=== PATIENT | female | born 1940 | race Caucasian/White ===

== ENCOUNTER 2021-10-26 07:03 | Inpatient (IN) ==
--- NOTE | 2021-10-20 11:39 | XRay Report ---
INDICATION: pre-op TECHNIQUE: PA and lateral upright chest x-ray COMPARISON: Previous chest x-rays dated 01/21/2021, 05/16/2016. Previous chest CT scan dated 04/07/2021 FINDINGS: Lungs: No focal pulmonary parenchymal infiltrate or mass. Lungs are negative. CT scan demonstrated changes of pulmonary fibrosis and bronchiectasis. These findings are not well-visualized on plain film examination. Heart, vascular: No significant cardiomegaly. Pulmonary vascularity is normal. No pulmonary edema or pulmonary congestion Mediastinum, kadeem: No mediastinal widening. No hilar mass Pleura:No pleural fluid. No pleural-based mass or calcification Thoracic spine, ribs: No thoracic compression fracture. Ribs are negative. No fracture. No lytic lesion. Previous right reverse shoulder arthroplasty IMPRESSION: No acute abnormality Interpreted and Authenticated by: Daniel Key 10/20/21
[2021-10-20 14:42] LABS: Basophils # (Auto) 0.07 K/mcL (0.00-0.30); Basophils % (Auto) 0.8 % (0.0-2.0); Eosinophils % (Auto) 2.2 % (0.0-7.0); Hematocrit 37.2 % (34.1-44.9); Hemoglobin 11.4 g/dL (11.2-15.7); Lymphocytes # (Auto) 0.87 K/mcL (1.50-4.80); Lymphocytes % (Auto) 9.7 % (15.5-49.0); Mean Cell Volume 87.3 fL (80.0-100.0); Mean Corpuscular HGB Conc 30.6 g/dL (31.0-36.0); Mean Platelet Volume 10.6 fL (7.4-10.4); Monocytes # (Auto) 0.54 K/mcL (0.10-0.90); Neutrophils % (Auto) 81.3 % (38.0-78.0); Platelet Count 309 K/mcL (140-440); RBC 4.26 M/mcL (3.59-5.38); Red Cell Distribution Width 16.5 % (11.5-14.5); WBC 8.9 K/mcL (4.5-11.0)
[2021-10-20 14:48] LABS: Partial Thromboplastin Time 28.7 sec (20.0-37.0); Prothrombin Time 13.8 sec (11.9-14.5)
[2021-10-20 16:29] LABS: ALT/SGPT 14 U/L (<40); AST/SGOT 23 U/L (<32); Albumin 3.8 gm/dL (3.2-5.2); Albumin/Globulin Ratio 1.5 (1.0-2.3); Alkaline Phosphatase 103 U/L (39-117); Bilirubin,Total 0.3 mg/dL (0.1-1.0); Blood Urea Nitrogen 16 mg/dL (8-23); Calcium 9.6 mg/dL (8.6-10.4); Carbon Dioxide 29 mmol/L (22-30); Chloride 100 mmol/L (96-108); Globulin 2.6 gm/dL (2.2-3.7); Glomerular Filtration Rate 60; Glucose 90 mg/dL (70-105)
--- NOTE | 2021-10-21 07:05 | EKG ---
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
[~2021-10-26 07:03] MED LIST: CEFEPIME 2 GM VIAL IV SCH; methylPREDNISolone SOD SUCC 125 MG/2 ML VIAL IV SCH
[2021-10-26] MEDS ORDERED: ePHEDrine 50 MG/5 ML SYRINGE (ANEST) IV ONE (09:40)
[2021-10-26] MEDS ORDERED: ONDANSETRON 4 MG/2 ML VIAL ONE (09:40)
[2021-10-26] MEDS ORDERED: ROCURONIUM 10 MG/ML ML IV ONE (09:40)
[2021-10-26] MEDS ORDERED: SUGAMMADEX SODIUM 200 MG/2 ML VIAL IV ONE (09:40)
[2021-10-26] MEDS ORDERED: PROPOFOL 200 MG/20 ML VIAL IV ONE (09:40)
[2021-10-26] MEDS ORDERED: LIDOCAINE HCL/PF 100 MG/5 ML SYRINGE IV ONE (09:40)
[2021-10-26] MEDS ORDERED: HYDROmorphone 1 MG/ML SYRINGE ONE (09:40)
[2021-10-26] MEDS ORDERED: fentaNYL 100 MCG/2 ML VIAL IV ONE (09:40)
[2021-10-26] MEDS ORDERED: DEXAMETHASONE 10 MG/ML VIAL ONE (09:40)
[2021-10-26] MEDS ORDERED: SUCCINYLCHOLINE 20 MG/ML ML IV ONE (09:40)
[2021-10-26] MEDS ORDERED: GENTAMICIN SULFATE 800 MG/20 ML VIAL IR ONE (10:30)
[2021-10-26] MEDS ORDERED: VANCOMYCIN 1 GM VIAL TOPICAL ONE (10:45)
[2021-10-26] MEDS ORDERED: HYDROmorphone 0.5 MG/0.5 ML SYRINGE IV PRN (12:32)
[2021-10-26] MEDS ORDERED: METHOCARBAMOL 1,000 MG/10 ML VIAL IV PRN (12:32)
[2021-10-26] MEDS ORDERED: METOPROLOL TARTRATE 5 MG/5 ML VIAL IV PRN (12:32)
[2021-10-26] MEDS ORDERED: LABETALOL 5 MG/ML ML IV PRN (12:32)
[2021-10-26] MEDS ORDERED: ACETAMINOPHEN 1,000 MG/100 ML BAG IV ONE (12:32)
[2021-10-26] MEDS ORDERED: fentaNYL 100 MCG/2 ML VIAL IV PRN (12:32)
[2021-10-26] MEDS ORDERED: NALOXONE HCL 0.4 MG/ML VIAL IV PRN (12:32)
[2021-10-26] MEDS ORDERED: LACTATED RINGERS 250 ML IV PRN (12:32)
[2021-10-26] MEDS ORDERED: IPRATROPIUM/ALBUTEROL 3 ML AMPUL.NEB NEB PRN (12:32)
[2021-10-26] MEDS ORDERED: ONDANSETRON 4 MG/2 ML VIAL IV PRN (12:32)
--- NOTE | 2021-10-26 12:39 | Brief Operative Note ---
Brief Operative Note Date of procedure: 10/26/21 Pre-op diagnosis: parastomal hernia;rectal prolapse Post-op diagnosis: other (parastomal hernia ;rectal prolapse) Procedure: parastomal hernia repair with mesh;ripstein posterior proctopexy Grafts/Implants: Yes (mesh graft x2) Anesthesia: GETA Findings: modrate sized parastomal hernia; full anorectal prolapse Complications: none Surgeon: Elli Feldman Estimated blood loss (cc): 50 Specimens Removed/Pathology: none sent Condition: stable Disposition: PACU
[2021-10-26] MEDS ORDERED: LACTATED RINGERS 1,000 ML IV SCH (12:45)
[2021-10-26] MEDS: 0.9 % SODIUM CHLORIDE 1,000 ML IV SCH (13:50)
[2021-10-26] MEDS: METHOCARBAMOL 750 MG TABLET PO SCH ×3 (13:56→21:36)
[2021-10-26] MEDS: 0.9 % SODIUM CHLORIDE 10 ML SYRINGE IV SCH ×2 (14:52→21:37)
[2021-10-26] MEDS: SILDENAFIL 20 MG PO SCH ×2 (14:54→21:38)
[2021-10-26] MEDS: Pilocarpine Hcl 5 mg tablet PO SCH ×2 (14:54→21:38)
[2021-10-26] MEDS: CEFEPIME 2 GM VIAL IV SCH ×2 (15:01→21:37)
[2021-10-26] MEDS: HYDROmorphone 1 MG/ML SYRINGE IV PRN (16:04)
[2021-10-26] MEDS: HYDROXYCHLOROQUINE 200 MG TABLET PO SCH (21:37)
[2021-10-26] MEDS: oxyCODONE HCL 5 MG TABLET PO PRN (21:37)
[2021-10-27] MEDS: HYDROmorphone 1 MG/ML SYRINGE IV PRN ×5 (00:39→23:48)
[2021-10-27] MEDS: 0.9 % SODIUM CHLORIDE 1,000 ML IV SCH ×2 (03:17→16:40)
[2021-10-27] MEDS: CEFEPIME 2 GM VIAL IV SCH ×3 (05:17→22:20)
[2021-10-27] MEDS: 0.9 % SODIUM CHLORIDE 10 ML SYRINGE IV SCH ×3 (05:18→20:30)
[2021-10-27] MEDS: oxyCODONE HCL 5 MG TABLET PO PRN (06:03)
[2021-10-27 07:29] LABS: Basophils # (Auto) 0.06 K/mcL (0.00-0.30); Basophils % (Auto) 0.4 % (0.0-2.0); Eosinophils # (Auto) 0.04 K/mcL (0.00-0.70); Eosinophils % (Auto) 0.3 % (0.0-7.0); Hematocrit 32.4 % (34.1-44.9); Lymphocytes # (Auto) 1.11 K/mcL (1.50-4.80); Lymphocytes % (Auto) 8.1 % (15.5-49.0); Mean Cell Volume 88.8 fL (80.0-100.0); Mean Corpuscular HGB Conc 30.9 g/dL (31.0-36.0); Mean Platelet Volume 10.4 fL (7.4-10.4); Monocytes # (Auto) 1.21 K/mcL (0.10-0.90); Monocytes % (Auto) 8.8 % (1.0-12.0); Neutrophils % (Auto) 82.4 % (38.0-78.0); Platelet Count 267 K/mcL (140-440); RBC 3.65 M/mcL (3.59-5.38); Red Cell Distribution Width 16.1 % (11.5-14.5); WBC 13.7 K/mcL (4.5-11.0)
[2021-10-27 08:11] LABS: ALT/SGPT 11 U/L (<40); AST/SGOT 24 U/L (<32); Albumin 3.1 gm/dL (3.2-5.2); Albumin/Globulin Ratio 1.5 (1.0-2.3); Alkaline Phosphatase 61 U/L (39-117); Bilirubin,Direct < 0.2 mg/dL (0-0.3); Bilirubin,Total 0.3 mg/dL (0.1-1.0); Blood Urea Nitrogen 19 mg/dL (8-23); Calcium 8.1 mg/dL (8.6-10.4); Carbon Dioxide 24 mmol/L (22-30); Chloride 104 mmol/L (96-108); Glomerular Filtration Rate 60; Glucose 101 mg/dL (70-105); Lactate Dehydrogenase 232 U/L (135-225); Triglycerides 87 mg/dL (<150); Uric Acid 6.4 mg/dL (2.5-8.0)
[2021-10-27] MEDS: SILDENAFIL 20 MG PO SCH ×3 (08:21→20:31)
[2021-10-27] MEDS: Pilocarpine Hcl 5 mg tablet PO SCH ×3 (08:21→20:31)
[2021-10-27] MEDS: ASPIRIN 81 MG TAB.CHEW PO SCH (08:30)
[2021-10-27] MEDS: FISH OIL 1,000 MG CAPSULE PO SCH (08:30)
[2021-10-27] MEDS: LISINOPRIL 20 MG TABLET PO SCH (08:30)
[2021-10-27] MEDS: HYDROXYCHLOROQUINE 200 MG TABLET PO SCH ×2 (08:32→21:26)
[2021-10-27] MEDS: amLODIPine 10 MG TABLET PO SCH (08:32)
[2021-10-27] MEDS: predniSONE 10 MG TABLET PO SCH (08:33)
[2021-10-27] MEDS: GABAPENTIN 300 MG CAPSULE PO SCH (08:42)
[2021-10-27] MEDS: METHOCARBAMOL 750 MG TABLET PO SCH ×4 (08:42→20:31)
--- NOTE | 2021-10-27 12:49 | General Surgery Progress Note ---
SUBJECTIVE Subjective Patient information: Note initiated : 10/27/21 at 12:43 pm Service Date, if different from initiated Date: [] Patient: Joceline Venegas 81 y/o F admitted on 10/26/21 for Repair of Parastomal Hernia and Proctopexy. Chief Complaint: [] Principal diagnosis: Parastomal hernia; anal rectal prolapse Interval history: Patient is status post repair of a parastomal hernia and a Ripstein posterior proctopexy for high-grade full-thickness anal rectal prolapse. She is doing fine. Her pain is controlled. She denies any chest discomfort or shortness of breath. She is afebrile. White blood count 13.7, hemoglobin 10, hematocrit 32.4, potassium 3.3, BUN 19, creatinine 0.9. Constitutional Vitals: Vital Signs Temp Pulse Resp BP Pulse Ox 99.0 F 87 18 154/75 93 10/27/21 08:00 10/27/21 08:00 10/27/21 08:00 10/27/21 08:00 10/27/21 08:00 Period Temp Pulse Resp BP Sys/Caicedo Pulse Ox Last 24 Hr 96.7 F-99.0 F 66-87 13-20 110-157/51-87 84-100 Intake and Output 10/26/21 10/27/21 10/27/21 21:59 05:59 13:59 Intake Total 200 1540 Output Total 365 435 Balance -165 1105 Weight 143 lb 14.4 oz Intake & Output: Intake & Output 10/26/21 10/27/21 10/27/21 21:59 05:59 13:59 Intake Total 200 1540 Output Total 365 435 Balance -165 1105 Weight 143 lb 14.4 oz Intake: IV 1000 Sodium Chloride 0.9% 1,000 ml @ 1000 75 mls/hr IV .[id number] [facility] Rx#: [id number] Oral 200 540 Output: Drainage 140 60 Abdomen 80 Right Lower Abdomen MAURICIO Drain 60 60 Urine Catheter Amount 225 375 Stool 0 Other: Urine Appearance Clear Uretheral (Jauregui) Clear Clear Urine Color Bright Yellow Bright Yellow Uretheral (Jauregui) Bright Yellow Bright Yellow Urine Odor Normal Uretheral (Jauregui) Normal Head Head exam: Present atraumatic, normal inspection and normocephalic Eye Eye exam: Present EOMI and PERRL ENT ENT exam: Present mucous membranes moist and normal oropharynx Neck Neck exam: Present full ROM and normal inspection; Absent lymphadenopathy Respiratory Respiratory exam: Present normal respiratory exam and CTAB; Absent rhonchi or wheezes Cardiovascular Cardiovascular exam: Present normal rate and rhythm, RRR, +S1 and +S2; Absent JVD GI/Abdominal GI/Abdominal exam: Present normal bowel sounds, soft, distended and tenderness (Moderate midline incisional tenderness and tenderness around parastomal area) Extremities Exam Extremities exam: Present full ROM, normal inspection and neurovascular intact (Fibrotic changes with ulceration and flexion contractures of fingers left hand due to Raynaud's and scleroderma) Psychiatric Psychiatric exam: Present normal affect and normal mood A/P Assessment and plan (1) Parastomal hernia: Status: Acute (2) Complete rectal prolapse with displacement of anal sphincter: Status: Acute (3) Obstructive sleep apnea hypopnea, severe: Status: Acute (4) History of deep venous thrombosis or pulmonary embolus: Status: Acute Plan Increase activity and get out of bed Time Spent With Patient Time: Total time spent is greater than 50% in coordination of care (as documented) at patient's floor/unit and/or counseling patient:
[2021-10-27] MEDS: ONDANSETRON 4 MG/2 ML VIAL IV PRN ×2 (13:45→18:43)
[2021-10-27] MEDS ORDERED: PROMETHAZINE 25 MG/ML VIAL IV PRN (19:38)
[2021-10-27] MEDS ORDERED: METOCLOPRAMIDE 10 MG/2 ML VIAL ONE (20:08)
[2021-10-27] MEDS ORDERED: PROMETHAZINE 25 MG/ML VIAL ONE (20:09)
[2021-10-27] MEDS: METOCLOPRAMIDE 10 MG/2 ML VIAL IV SCH (20:29)
[2021-10-27] MEDS ORDERED: diphenhydrAMINE 50 MG/ML VIAL IV PRN (21:00)
--- NOTE | 2021-10-28 05:25 | XRay Report ---
INDICATION: Post Surgical TECHNIQUE: Supine and upright abdomen. COMPARISON: Previous CT scans dated 04/23/2021, 01/21/2021 FINDINGS:Skin dereje in a vertical lower abdominal and pelvic incision. There is a surgical drain in the pelvis. There is an apparent right lower quadrant pelvic ostomy. Bowel gas pattern is unremarkable and nonspecific. There is no mechanical small bowel obstruction. There is no dilated gas-filled small bowel. There is no biliary or portal venous gas. There is probable pneumatosis with gas under the right hemidiaphragm. This is considered a postsurgical finding. IMPRESSION: 1. Postoperative abdomen 2. No mechanical small bowel obstruction. Nonspecific bowel gas pattern Interpreted and Authenticated by: Daniel Key 10/28/21
[2021-10-28] MEDS: 0.9 % SODIUM CHLORIDE 10 ML SYRINGE IV SCH ×3 (06:22→20:17)
[2021-10-28] MEDS: 0.9 % SODIUM CHLORIDE 1,000 ML IV SCH ×2 (06:22→19:43)
[2021-10-28] MEDS: CEFEPIME 2 GM VIAL IV SCH ×3 (06:22→21:04)
[2021-10-28] MEDS: Pilocarpine Hcl 5 mg tablet PO SCH ×3 (10:34→20:17)
[2021-10-28] MEDS: SILDENAFIL 20 MG PO SCH ×3 (10:34→20:17)
[2021-10-28] MEDS: LISINOPRIL 20 MG TABLET PO SCH (10:50)
[2021-10-28] MEDS: predniSONE 10 MG TABLET PO SCH (10:50)
[2021-10-28] MEDS: HYDROXYCHLOROQUINE 200 MG TABLET PO SCH ×2 (10:50→20:16)
[2021-10-28] MEDS: ASPIRIN 81 MG TAB.CHEW PO SCH (10:50)
[2021-10-28] MEDS: amLODIPine 10 MG TABLET PO SCH (10:51)
[2021-10-28] MEDS: GABAPENTIN 300 MG CAPSULE PO SCH (10:53)
[2021-10-28] MEDS: FISH OIL 1,000 MG CAPSULE PO SCH (10:53)
[2021-10-28] MEDS: METHOCARBAMOL 750 MG TABLET PO SCH ×4 (10:53→20:16)
--- NOTE | 2021-10-28 12:32 | General Surgery Progress Note ---
SUBJECTIVE Subjective Patient information: Note initiated : 10/28/21 at 12:23 pm Service Date, if different from initiated Date: [] Patient: Joceline Venegas 81 y/o F admitted on 10/26/21 for Repair of Parastomal Hernia and Proctopexy. Chief Complaint: [] Principal diagnosis: Parastomal hernia; anal rectal prolapse Interval history: Patient had multiple episodes of nausea and vomiting last evening. She was switched to metoclopramide and promethazine and has not had nausea or vomiting since then. She still has not had any flatus passage. Her stoma looks good and she does not have any distention. Abdominal x-rays from last evening shows a small amount of small bowel gas but no obstructive pattern. MAURICIO drain with small amount of serosanguineous drainage Constitutional Vitals: Vital Signs Temp Pulse Resp BP Pulse Ox 98.4 F 73 20 146/71 90 10/28/21 11:41 10/28/21 03:06 10/28/21 11:41 10/28/21 11:41 10/28/21 11:41 Period Temp Pulse Resp BP Sys/Caicedo Pulse Ox Last 24 Hr 98.0 F-99.3 F 72-82 16-20 129-152/68-76 90-92 Intake and Output 10/27/21 10/28/21 10/28/21 21:59 05:59 13:59 Intake Total 4825 544 7431 Output Total 910 1330 1675 Balance 90 -1090 -675 Weight 145 lb 9 oz Intake & Output: Intake & Output 10/27/21 10/28/21 10/28/21 21:59 05:59 13:59 Intake Total 1961 976 1046 Output Total 910 1330 1675 Balance 90 -1090 -675 Weight 145 lb 9 oz Intake: IV 1000 1000 Sodium Chloride 0.9% 1,000 ml @ 1000 1000 75 mls/hr IV .[id number] [facility] Rx#: [id number] Oral 240 Output: Drainage 85 Right Lower Abdomen MAURICIO Drain 85 Drainage 125 30 Right Lower Abdomen MAURICIO Drain 125 30 Urine Catheter Amount 700 1300 1675 Other: Urine Appearance Clear Clear Clear Uretheral (Jauregui) Clear Clear Urine Color Straw Bright Yellow Bright Yellow Uretheral (Jauregui) Pale Bright Yellow Straw Urine Odor Normal Normal Uretheral (Jauregui) Normal Normal # Unmeasured Emesis 1 # Emeses 2 Eye Eye exam: Present EOMI and PERRL Pupils: Present normal accommodation ENT ENT exam: Present normal exam and normal oropharynx Neck Neck exam: Present full ROM and normal inspection Respiratory Respiratory exam: Present normal respiratory exam and CTAB Cardiovascular Cardiovascular exam: Present normal rate and rhythm, +S1 and +S2 GI/Abdominal GI/Abdominal exam: Present soft, diminished bowel sounds, distended (Mildly distended) and tenderness (Midline tenderness and tenderness in the parastomal area) Extremities Exam Extremities exam: Present full ROM, normal capillary refill and neurovascular intact Neurological Exam Neurological exam: Present alert and reflexes normal; Absent motor sensory deficit Psychiatric Psychiatric exam: Present normal affect and normal mood A/P Assessment and plan (1) Parastomal hernia: Status: Acute Qualifiers: Obstruction and gangrene presence: without obstruction or gangrene Qualified Code(s): K43.5 - Parastomal hernia without obstruction or gangrene (2) Colostomy status: Status: Acute (3) Obstructive sleep apnea hypopnea, severe: Status: Acute (4) Complete rectal prolapse with displacement of anal sphincter: Status: Acute Plan Patient is clinically improved from yesterday. She has mild adynamic ileus present medications are controlling her symptoms of nausea. We will not advance diet at this time Time Spent With Patient Time: Total time spent is greater than 50% in coordination of care (as documented) at patient's floor/unit and/or counseling patient:
[2021-10-28] MEDS: METOCLOPRAMIDE 10 MG/2 ML VIAL IV SCH (19:49)
[2021-10-28] MEDS: diphenhydrAMINE 25 MG CAPSULE PO PRN (21:04)
[2021-10-29] MEDS: METOCLOPRAMIDE 10 MG/2 ML VIAL IV SCH ×5 (00:37→23:53)
[2021-10-29] MEDS: 0.9 % SODIUM CHLORIDE 10 ML SYRINGE IV SCH ×3 (05:19→20:37)
[2021-10-29] MEDS: CEFEPIME 2 GM VIAL IV SCH ×3 (05:19→21:39)
[2021-10-29 06:56] LABS: Basophils # (Auto) 0.05 K/mcL (0.00-0.30); Basophils % (Auto) 0.4 % (0.0-2.0); Eosinophils # (Auto) 0.31 K/mcL (0.00-0.70); Eosinophils % (Auto) 2.5 % (0.0-7.0); Hemoglobin 10.7 g/dL (11.2-15.7); Lymphocytes # (Auto) 0.97 K/mcL (1.50-4.80); Lymphocytes % (Auto) 7.8 % (15.5-49.0); Mean Cell Volume 86.7 fL (80.0-100.0); Mean Corpuscular HGB Conc 31.5 g/dL (31.0-36.0); Mean Platelet Volume 10.6 fL (7.4-10.4); Monocytes # (Auto) 0.99 K/mcL (0.10-0.90); Neutrophils % (Auto) 81.3 % (38.0-78.0); Platelet Count 257 K/mcL (140-440); RBC 3.92 M/mcL (3.59-5.38); Red Cell Distribution Width 16.1 % (11.5-14.5); WBC 12.4 K/mcL (4.5-11.0)
[2021-10-29 07:46] LABS: ALT/SGPT 13 U/L (<40); AST/SGOT 21 U/L (<32); Albumin 2.8 gm/dL (3.2-5.2); Alkaline Phosphatase 66 U/L (39-117); Bilirubin,Direct < 0.2 mg/dL (0-0.3); Bilirubin,Total 0.4 mg/dL (0.1-1.0); Blood Urea Nitrogen 9 mg/dL (8-23); Calcium 8.7 mg/dL (8.6-10.4); Carbon Dioxide 30 mmol/L (22-30); Chloride 101 mmol/L (96-108); Globulin 2.8 gm/dL (2.2-3.7); Glomerular Filtration Rate 82; Glucose 82 mg/dL (70-105); Lactate Dehydrogenase 231 U/L (135-225); Phosphorous 1.8 mg/dL (2.5-4.5); Triglycerides 107 mg/dL (<150); Uric Acid 4.9 mg/dL (2.5-8.0)
--- NOTE | 2021-10-29 08:36 | XRay Report ---
INDICATION: FOR F/U OF ILEUS TECHNIQUE: Supine and upright abdomen. COMPARISON: Previous examination dated 10/27/2021 FINDINGS:No change in surgical drain within the pelvis. There is gas within the colon. No significant dilated gas-filled small bowel. Appearances consistent with nonspecific postsurgical abdomen. The There is no biliary or portal venous gas IMPRESSION: Nonspecific gas pattern Interpreted and Authenticated by: Daniel Key 10/29/21
[2021-10-29] MEDS: 0.9 % SODIUM CHLORIDE 1,000 ML IV SCH ×3 (08:44→21:39)
[2021-10-29] MEDS: HYDROXYCHLOROQUINE 200 MG TABLET PO SCH ×2 (08:45→20:36)
[2021-10-29] MEDS: METHOCARBAMOL 750 MG TABLET PO SCH ×4 (08:45→20:35)
[2021-10-29] MEDS: ASPIRIN 81 MG TAB.CHEW PO SCH (08:45)
[2021-10-29] MEDS: amLODIPine 10 MG TABLET PO SCH (08:45)
[2021-10-29] MEDS: LISINOPRIL 20 MG TABLET PO SCH (08:45)
[2021-10-29] MEDS: FISH OIL 1,000 MG CAPSULE PO SCH (08:45)
[2021-10-29] MEDS: predniSONE 10 MG TABLET PO SCH (08:45)
[2021-10-29] MEDS: GABAPENTIN 300 MG CAPSULE PO SCH (08:47)
[2021-10-29] MEDS: oxyCODONE HCL 5 MG TABLET PO PRN ×2 (09:02→23:53)
[2021-10-29] MEDS: SILDENAFIL 20 MG PO SCH ×3 (09:16→20:35)
[2021-10-29] MEDS: Pilocarpine Hcl 5 mg tablet PO SCH ×3 (09:16→20:34)
--- NOTE | 2021-10-29 13:04 | General Surgery Progress Note ---
SUBJECTIVE Subjective Patient information: Note initiated : 10/29/21 at 12:46 pm Service Date, if different from initiated Date: [] Patient: Joceline Venegas 81 y/o F admitted on 10/26/21 for Repair of Parastomal Hernia and Proctopexy. Chief Complaint: [] Principal diagnosis: Parastomal hernia; anal rectal prolapse Interval history: Patient is stable but she still has not had any flatus. She is afebrile. Blood count 12.4, hemoglobin 10.7, potassium 2.9. Abdominal x-rays showed gas in the colon with decreased gas in the small bowel. Constitutional Vitals: Vital Signs Temp Pulse Resp BP Pulse Ox 97.7 F 71 20 123/74 95 10/29/21 11:59 10/29/21 03:56 10/29/21 11:59 10/29/21 11:59 10/29/21 11:59 Period Temp Pulse Resp BP Sys/Caicedo Pulse Ox Last 24 Hr 97.1 F-99.5 F 71-87 14-20 123-162/63-75 91-95 Intake and Output 10/28/21 10/29/21 10/29/21 21:59 05:59 13:59 Intake Total 7045 230 1614 Output Total 2255 995 Balance -667 -895 1276 Weight 138 lb 8 oz Intake & Output: Intake & Output 10/28/21 10/29/21 10/29/21 21:59 05:59 13:59 Intake Total 4617 217 3536 Output Total 2255 995 Balance -667 -895 1276 Weight 138 lb 8 oz Intake: IV 958 976 Sodium Chloride 0.9% 1,000 ml @ 958 976 75 mls/hr IV .[id number] [facility] Rx#: [id number] Oral 630 100 GI Tube Flush 300 Output: Drainage 30 45 Right Lower Abdomen MAURICIO Drain 30 45 Urine Catheter Amount 2225 950 Other: Urine Appearance Clear Clear Clear Uretheral (Jauregui) Clear Clear Urine Color Pale Pale Straw Uretheral (Jauregui) Pale Straw Urine Odor Strong Normal Normal Eye Eye exam: Present EOMI Pupils: Present normal accommodation ENT ENT exam: Present mucous membranes moist and normal oropharynx Neck Neck exam: Present full ROM Respiratory Respiratory exam: Present normal respiratory exam Cardiovascular Cardiovascular exam: Present normal rate and rhythm, RRR, +S1 and +S2; Absent JVD GI/Abdominal GI/Abdominal exam: Present normal bowel sounds, distended and tenderness Extremities Exam Extremities exam: Present normal inspection and neurovascular intact Neurological Exam Neurological exam: Present normal gait, oriented X3 and reflexes normal Psychiatric Psychiatric exam: Present normal affect and normal mood A/P Assessment and plan (1) care home (current) use of systemic steroids: Status: Chronic (2) Parastomal hernia: Status: Acute Qualifiers: Obstruction and gangrene presence: without obstruction or gangrene Qualified Code(s): K43.5 - Parastomal hernia without obstruction or gangrene (3) Parastomal hernia with obstruction, without gangrene: Status: Acute (4) Obstructive sleep apnea hypopnea, severe: Status: Acute (5) Colostomy status: Status: Acute Plan Milk of magnesia 30 cc every 4 hours times Decrease IV 50 cc per hour Benadryl 50 mg nightly. Time Spent With Patient Time: Total time spent is greater than 50% in coordination of care (as documented) at patient's floor/unit and/or counseling patient:
[2021-10-29] MEDS: MAGNESIUM HYDROXIDE 30 ML ORAL.SUSP PO SCH ×3 (14:38→21:39)
[2021-10-29] MEDS: POTASSIUM CHLORIDE 20 MEQ TABLET PO SCH (17:28)
[2021-10-29] MEDS: diphenhydrAMINE 25 MG CAPSULE PO PRN (20:36)
[2021-10-30] MEDS: CEFEPIME 2 GM VIAL IV SCH ×3 (05:33→21:30)
[2021-10-30] MEDS: METOCLOPRAMIDE 10 MG/2 ML VIAL IV SCH ×3 (05:33→17:13)
[2021-10-30] MEDS: oxyCODONE HCL 5 MG TABLET PO PRN ×3 (05:33→21:33)
[2021-10-30] MEDS: 0.9 % SODIUM CHLORIDE 10 ML SYRINGE IV SCH ×3 (05:34→20:26)
[2021-10-30] MEDS: GABAPENTIN 300 MG CAPSULE PO SCH (08:33)
[2021-10-30] MEDS: LISINOPRIL 20 MG TABLET PO SCH (08:33)
[2021-10-30] MEDS: POTASSIUM CHLORIDE 20 MEQ TABLET PO SCH ×2 (08:33→17:13)
[2021-10-30] MEDS: amLODIPine 10 MG TABLET PO SCH (08:33)
[2021-10-30] MEDS: ASPIRIN 81 MG TAB.CHEW PO SCH (08:33)
[2021-10-30] MEDS: Pilocarpine Hcl 5 mg tablet PO SCH ×3 (08:33→20:25)
[2021-10-30] MEDS: METHOCARBAMOL 750 MG TABLET PO SCH ×4 (08:33→20:25)
[2021-10-30] MEDS: predniSONE 10 MG TABLET PO SCH (08:33)
[2021-10-30] MEDS: HYDROXYCHLOROQUINE 200 MG TABLET PO SCH ×2 (08:33→20:25)
[2021-10-30] MEDS: FISH OIL 1,000 MG CAPSULE PO SCH (08:34)
[2021-10-30] MEDS: SILDENAFIL 20 MG PO SCH ×3 (08:34→20:25)
--- NOTE | 2021-10-30 13:05 | XRay Report ---
INDICATION: post op ileus TECHNIQUE: Supine and upright abdomen. COMPARISON: Previous examinations dated 10/29/2021, 10/27/2021 FINDINGS:Skin dereje in a vertical midline incision. There is a surgical drain in the pelvis. There is gas within the colon. There is small bowel gas without dilatation. There are scattered small bowel air-fluid levels. No biliary or portal venous gas. No pneumoperitoneum. IMPRESSION: 1. Small bowel gas with air-fluid levels but without dilatation 2. No focal abnormality Interpreted and Authenticated by: Daniel Key 10/30/21
[2021-10-30] MEDS: ONDANSETRON 4 MG/2 ML VIAL IV PRN (13:28)
--- NOTE | 2021-10-30 13:36 | General Surgery Progress Note ---
SUBJECTIVE Subjective Patient information: Note initiated : 10/30/21 at 1:29 pm Service Date, if different from initiated Date: [] Patient: Joceline Venegas 81 y/o F admitted on 10/26/21 for Repair of Parastomal Hernia and Proctopexy. Chief Complaint: [] Principal diagnosis: Parastomal hernia; anal rectal prolapse Interval history: Patient is clinically stable. She did have some emesis of Jell-O. Abdominal films shows dilated loop of transverse colon with minimal small bowel gas. She has had output through her stoma. Constitutional Vitals: Vital Signs Temp Pulse Resp BP Pulse Ox 98.9 F 65 20 145/74 95 10/30/21 11:47 10/30/21 05:26 10/30/21 11:47 10/30/21 11:47 10/30/21 11:47 Period Temp Pulse Resp BP Sys/Caicedo Pulse Ox Last 24 Hr 97.5 F-98.9 F 65-100 16-20 118-153/60-76 90-97 Intake and Output 10/29/21 10/30/21 10/30/21 21:59 05:59 13:59 Intake Total 1950 Output Total 955 1380 110 Balance 996 -1380 -110 Weight 142 lb 4.8 oz Intake & Output: Intake & Output 10/29/21 10/30/21 10/30/21 21:59 05:59 13:59 Intake Total 1950 Output Total 955 1380 110 Balance 996 -1380 -110 Weight 142 lb 4.8 oz Intake: IV 941 Sodium Chloride 0.9% 1,000 ml @ 941 50 mls/hr IV .Q20H [facility] Rx#: [id number] Oral 1010 Output: Drainage 30 10 Right Lower Abdomen MAURICIO Drain 30 10 Drainage 55 Right Lower Abdomen MAURICIO Drain 55 Urine Catheter Amount 925 1300 Stool 25 100 Other: Urine Appearance Clear Clear Uretheral (Jauregui) Clear Clear Urine Color Bright Yellow Straw Uretheral (Jauregui) Bright Yellow Straw Urine Odor Normal Stool Size Moderate Stool Color Brown Stool Consistency Liquid # Bowel Movements 1 ENT ENT exam: Present mucous membranes moist and normal oropharynx Neck Neck exam: Present full ROM and normal inspection Respiratory Respiratory exam: Present normal respiratory exam and CTAB Cardiovascular Cardiovascular exam: Present normal rate and rhythm, RRR, +S1 and +S2; Absent JVD GI/Abdominal GI/Abdominal exam: Present normal bowel sounds and soft; Absent distended Extremities Exam Extremities exam: Present full ROM, normal inspection and neurovascular intact Neurological Exam Neurological exam: Present normal gait and oriented X3; Absent motor sensory deficit Psychiatric Psychiatric exam: Present normal affect and normal mood A/P Assessment and plan (1) Parastomal hernia: Status: Acute Qualifiers: Obstruction and gangrene presence: without obstruction or gangrene Qualified Code(s): K43.5 - Parastomal hernia without obstruction or gangrene (2) Colostomy status: Status: Acute (3) Rectal mucosa prolapse: Status: Acute Plan Continue clear liquid diet Add MiraLAX twice daily Inpatient panel Time Spent With Patient Time: Total time spent is greater than 50% in coordination of care (as documented) at patient's floor/unit and/or counseling patient:
[2021-10-30 15:00] LABS: ALT/SGPT 13 U/L (<40); AST/SGOT 20 U/L (<32); Albumin 3.2 gm/dL (3.2-5.2); Alkaline Phosphatase 73 U/L (39-117); Bilirubin,Direct < 0.2 mg/dL (0-0.3); Bilirubin,Total 0.5 mg/dL (0.1-1.0); Blood Urea Nitrogen 13 mg/dL (8-23); Calcium 8.5 mg/dL (8.6-10.4); Carbon Dioxide 25 mmol/L (22-30); Chloride 97 mmol/L (96-108); Globulin 3.1 gm/dL (2.2-3.7); Glomerular Filtration Rate 82; Glucose 147 mg/dL (70-105); Lactate Dehydrogenase 241 U/L (135-225); Triglycerides 116 mg/dL (<150); Uric Acid 4.7 mg/dL (2.5-8.0)
[2021-10-30] MEDS: 0.9 % SODIUM CHLORIDE 1,000 ML IV SCH ×2 (15:34→17:12)
[2021-10-30] MEDS: POLYETHYLENE GLYCOL 3350 17 GM PACKET PO SCH (20:24)
[2021-10-30] MEDS: diphenhydrAMINE 25 MG CAPSULE PO PRN (21:33)
[2021-10-31] MEDS: METOCLOPRAMIDE 10 MG/2 ML VIAL IV SCH ×3 (00:19→11:40)
[2021-10-31] MEDS: CEFEPIME 2 GM VIAL IV SCH ×2 (05:49→13:12)
[2021-10-31] MEDS: 0.9 % SODIUM CHLORIDE 10 ML SYRINGE IV SCH ×2 (05:49→13:14)
[2021-10-31 06:30] LABS: ALT/SGPT 14 U/L (<40); AST/SGOT 19 U/L (<32); Alkaline Phosphatase 71 U/L (39-117); Bilirubin,Direct < 0.2 mg/dL (0-0.3); Bilirubin,Total 0.5 mg/dL (0.1-1.0); Blood Urea Nitrogen 10 mg/dL (8-23); Calcium 8.7 mg/dL (8.6-10.4); Carbon Dioxide 26 mmol/L (22-30); Chloride 99 mmol/L (96-108); Globulin 2.9 gm/dL (2.2-3.7); Glomerular Filtration Rate 82; Glucose 79 mg/dL (70-105); Lactate Dehydrogenase 215 U/L (135-225); Phosphorous 1.8 mg/dL (2.5-4.5); Triglycerides 104 mg/dL (<150); Uric Acid 4.1 mg/dL (2.5-8.0)
[2021-10-31] MEDS: ASPIRIN 81 MG TAB.CHEW PO SCH (07:58)
[2021-10-31] MEDS: GABAPENTIN 300 MG CAPSULE PO SCH (07:58)
[2021-10-31] MEDS: POTASSIUM CHLORIDE 20 MEQ TABLET PO SCH (07:58)
[2021-10-31] MEDS: predniSONE 10 MG TABLET PO SCH (07:58)
[2021-10-31] MEDS: METHOCARBAMOL 750 MG TABLET PO SCH ×2 (07:58→13:12)
[2021-10-31] MEDS: LISINOPRIL 20 MG TABLET PO SCH (07:58)
[2021-10-31] MEDS: FISH OIL 1,000 MG CAPSULE PO SCH (07:58)
[2021-10-31] MEDS: amLODIPine 10 MG TABLET PO SCH (07:59)
[2021-10-31] MEDS: POLYETHYLENE GLYCOL 3350 17 GM PACKET PO SCH (07:59)
[2021-10-31] MEDS: HYDROXYCHLOROQUINE 200 MG TABLET PO SCH (07:59)
[2021-10-31] MEDS: SILDENAFIL 20 MG PO SCH ×2 (08:00→15:36)
[2021-10-31] MEDS: Pilocarpine Hcl 5 mg tablet PO SCH ×2 (08:20→15:36)
[2021-10-31] MEDS: 0.9 % SODIUM CHLORIDE 1,000 ML IV SCH (13:13)
--- NOTE | 2021-10-31 13:51 | Discharge Summary ---
Discharge Provider Provider IMPORTANT FOLLOW-UP INFORMATION FOR PCP: Patient information: Note initiated : 10/31/21 at 1:41 pm Service Date, if different from initiated Date: [] Patient: Joceline Venegas 81 y/o F admitted on 10/26/21 for Repair of Parastomal Hernia and Proctopexy. Chief Complaint: [] Date of admission: 10/26/21 07:04 Discharge date: 10/31/21 Primary care physician: Leonel Jackson MD Admitting clinician: Elli Feldman Attending physician on admission: Elli Feldman Attending physician on discharge: Elli Feldman Discharging clinician: Elli Feldman COURSE Hospital Course Hospital course: 81-year-old female who is status post repair of parastomal hernia and requesting posterior rectal proctopexy on 26 October 2021. Patient had some mild ileus but is now having output through her stoma and is passing flatus. She had some nausea yesterday but has not had any since that time. She has been tolerating liquid diet without difficulty. Patient is clinically stable for discharge. Discharge diagnosis: Parastomal hernia Secondary discharge diagnosis: Anal rectal prolapse Crest syndrome Hypertension Obstructive sleep apnea Reason for admission: Postoperative status Procedures: Parastomal hernia repair Ripstein proctopexy Pertinent studies/significant findings: None Complications: None Time Spent with Patient Time attestation: Total time spent providing and/or coordinating discharge services: Time spent: Less than 30 minutes Physical Examination Vital Signs Vital signs: Temp Pulse Resp BP Pulse Ox 98.2 F 76 20 141/74 93 10/31/21 11:36 10/31/21 03:57 10/31/21 11:36 10/31/21 11:36 10/31/21 11:36 General physical appearance General physical exam: well developed, no distress and no pain Eyes Eye exam: PERRL and normal ocular movement ENT ENT exam: normal nares, normal mucosa and no congestion Head Head exam IM: Present atraumatic, normal inspection and normocephalic Neck Neck exam: no masses, no bruits, trachea midline, no lymphadenopathy and no venous distension Cardiovascular Cardiovascular exam IM: Present normal rate and rhythm, RRR, +S1 and +S2; Absent JVD Respiratory Respiratory exam: normal expansion, normal respiratory effort and clear to auscultation Abdomen Abdomen: Present soft and bowel sounds (Normal active bowel sounds) Rectum Rectum: Present other (Poor sphincter tone; no evidence of prolapse) Neurologic Neurologic: Present normal coordination and normal sensation Musculoskeletal Musculoskeletal: Present normal gait and normal posture Psychiatric Psychiatric: Present oriented to time, oriented to person, oriented to place, speech is normal and memory intact Discharge Plan Patient/Caregiver Discharge Instructions Activity: increase activity as tolerated Diet: Full Liquid Prescriptions: No Action pilocarpine HCl 5 mg tablet 5 mg PO TID Qty: 90 1RF omeprazole 20 mg capsule,delayed release(DR/EC) 20 mg PO QDAY Qty: 90 3RF hydroxychloroquine 200 mg tablet 200 mg PO BID Qty: 180 3RF gabapentin 300 mg capsule 300 mg PO QDAY Qty: 30 2RF lisinopril 40 mg tablet 40 mg PO QDAY 90 Days Qty: 90 3RF chlorthalidone 25 mg tablet 25 mg PO QDAY 0RF etodolac 400 mg tablet 400 mg PO BID 14 Days Qty: 28 0RF methocarbamol 750 mg tablet 750 mg PO QID 14 Days Qty: 56 0RF prednisone 10 mg tablet 10 mg PO QDAY Qty: 90 0RF amlodipine 10 mg tablet 10 mg PO QDAY Qty: 30 1RF calcium citrate 200 MG tablet 200 mg PO DAILY 0RF omega-3 fatty acids-fish oil 1 EACH capsule 1 each PO DAILY 0RF Label Comments: HOLDING FOR SURGERY Adult Multivitamin Extra VitD3 200 mcg Tablet,Chewable 1 tab PO QDAY 0RF aspirin 81 mg Tablet,Delayed Release (Dr/Ec) 81 mg PO QDAY 0RF chlorthalidone [Hygroton] 25 mg Tablet 25 mg PO QDAY 0RF Follow Up Plan Follow up with: Elli Feldman MD [Physician] - 11/10/21 10:00 am Patient Disposition: Home, Self-Care Prognosis: Good Rehab Potential: Good I certify that the patient requires SNF services: No Overall status at discharge: patient is progressing back to baseline Discharge Orders: Discharge Order (Routine); Ordered 10/31/21 Ordered By: Elli Feldman Pending Pending Pending: Resuscitation Status Resuscitate (Full Code) Diet Clear Liquid Diet Start Sun 8 1243 Amlodipine Besylate (Amlodipine 10 Mg Tablet) 10 mg PO QDAY RJ Last Admin: 10/31/21 07:59 Dose: 10 mg Documented by: Admin: 10/30/21 08:33 Dose: 10 mg Documented by: Admin: 10/29/21 08:45 Dose: 10 mg Documented by: Admin: 10/28/21 10:51 Dose: 10 mg Documented by: Admin: 10/27/21 08:32 Dose: 10 mg Documented by: CARLO Aspirin (Aspirin 81 Mg Tab.Chew) 81 mg PO QDAY [facility] Last Admin: 10/31/21 07:58 Dose: 81 mg Documented by: Admin: 10/30/21 08:33 Dose: 81 mg Documented by: Admin: 10/29/21 08:45 Dose: 81 mg Documented by: Admin: 10/28/21 10:50 Dose: 81 mg Documented by: Admin: 10/27/21 08:30 Dose: 81 mg Documented by: CARLO Cefepime HCl (Cefepime 2 Gm Vial) 2 gm IV Q8H [facility]; Protocol Last Admin: 10/31/21 13:12 Dose: 2 gm Documented by: Admin: 10/31/21 05:49 Dose: 2 gm Documented by: Admin: 10/30/21 21:30 Dose: 2 gm Documented by: Admin: 10/30/21 15:33 Dose: 2 gm Documented by: Admin: 10/30/21 05:33 Dose: 2 gm Documented by: Admin: 10/29/21 21:39 Dose: 2 gm Documented by: Admin: 10/29/21 14:32 Dose: 2 gm Documented by: Admin: 10/29/21 05:19 Dose: 2 gm Documented by: Admin: 10/28/21 21:04 Dose: 2 gm Documented by: Admin: 10/28/21 15:35 Dose: 2 gm Documented by: Admin: 10/28/21 06:22 Dose: 2 gm Documented by: Admin: 10/27/21 22:20 Dose: 2 gm Documented by: Admin: 10/27/21 13:10 Dose: 2 gm Documented by: Admin: 10/27/21 05:17 Dose: 2 gm Documented by: Admin: 10/26/21 21:37 Dose: 2 gm Documented by: Admin: 10/26/21 15:01 Dose: 2 gm Documented by: SHELBY Diphenhydramine HCl (Diphenhydramine 25 Mg Capsule) 50 mg PO HSP PRN PRN Reason: Insomnia Last Admin: 10/30/21 21:33 Dose: 50 mg Documented by: Admin: 10/29/21 20:36 Dose: 50 mg Documented by: Admin: 10/28/21 21:04 Dose: 50 mg Documented by: JOCELINE Fish Oil (Fish Oil 1,000 Mg Capsule) 1,000 mg PO DAILY [facility] Admin: 10/31/21 07:58 Dose: 1,000 mg Documented by: Admin: 10/30/21 08:34 Dose: 1,000 mg Documented by: Admin: 10/29/21 08:45 Dose: 1,000 mg Documented by: Admin: 10/28/21 10:53 Dose: Not Given Documented by: Admin: 10/27/21 08:30 Dose: 1,000 mg Documented by: CARLO Gabapentin (Gabapentin 300 Mg Capsule) 300 mg PO QDAY [facility] Admin: 10/31/21 07:58 Dose: 300 mg Documented by: Admin: 10/30/21 08:33 Dose: 300 mg Documented by: Admin: 10/29/21 08:47 Dose: Not Given Documented by: Admin: 10/28/21 10:53 Dose: Not Given Documented by: Admin: 10/27/21 08:42 Dose: Not Given Documented by: CARLO Hydromorphone HCl (Hydromorphone 1 Mg/Ml Syringe) 1 mg IV Q2HP PRN; Protocol PRN Reason: Per Pain Protocol Last Admin: 10/27/21 23:48 Dose: 1 mg Documented by: Admin: 10/27/21 18:39 Dose: 1 mg Documented by: Admin: 10/27/21 13:09 Dose: 1 mg Documented by: Admin: 10/27/21 08:27 Dose: 1 mg Documented by: Admin: 10/27/21 00:39 Dose: 1 mg Documented by: Admin: 10/26/21 16:04 Dose: 1 mg Documented by: SHELBY Hydroxychloroquine Sulfate (Hydroxychloroquine 200 Mg Tablet) 200 mg PO BID [facility] Admin: 10/31/21 07:59 Dose: 200 mg Documented by: Admin: 10/30/21 20:25 Dose: 200 mg Documented by: Admin: 10/30/21 08:33 Dose: 200 mg Documented by: Admin: 10/29/21 20:36 Dose: 200 mg Documented by: Admin: 10/29/21 08:45 Dose: 200 mg Documented by: Admin: 10/28/21 20:16 Dose: 200 mg Documented by: Admin: 10/28/21 10:50 Dose: 200 mg Documented by: Admin: 10/27/21 21:26 Dose: Not Given Documented by: Admin: 10/27/21 08:32 Dose: 200 mg Documented by: Admin: 10/26/21 21:37 Dose: 200 mg Documented by: KAMRAN Sodium Chloride (Sodium Chloride 0.9%) 1,000 mls @ 50 mls/hr IV .Q20H [facility] Admin: 10/31/21 13:13 Dose: 50 mls/hr Documented by: Infusion: 10/31/21 13:12 Dose: 50 mls/hr Documented by: Admin: 10/30/21 17:12 Dose: 50 mls/hr Documented by: Infusion: 10/30/21 17:12 Dose: 50 mls/hr Documented by: Admin: 10/30/21 15:34 Dose: Not Given Documented by: Admin: 10/29/21 21:39 Dose: 50 mls/hr Documented by: Infusion: 10/29/21 21:39 Dose: 50 mls/hr Documented by: Admin: 10/29/21 20:37 Dose: 50 mls/hr Documented by: JOCELINE Lisinopril (Lisinopril 20 Mg Tablet) 40 mg PO QDAY [facility] Admin: 10/31/21 07:58 Dose: 40 mg Documented by: Admin: 10/30/21 08:33 Dose: 40 mg Documented by: Admin: 10/29/21 08:45 Dose: 40 mg Documented by: Admin: 10/28/21 10:50 Dose: 40 mg Documented by: Admin: 10/27/21 08:30 Dose: 40 mg Documented by: CARLO Methocarbamol (Methocarbamol 750 Mg Tablet) 750 mg PO QID [facility] Admin: 10/31/21 13:12 Dose: 750 mg Documented by: Admin: 10/31/21 07:58 Dose: 750 mg Documented by: Admin: 10/30/21 20:25 Dose: 750 mg Documented by: Admin: 10/30/21 17:13 Dose: 750 mg Documented by: Admin: 10/30/21 12:56 Dose: 750 mg Documented by: Admin: 10/30/21 08:33 Dose: 750 mg Documented by: Admin: 10/29/21 20:35 Dose: 750 mg Documented by: Admin: 10/29/21 17:28 Dose: 750 mg Documented by: Admin: 10/29/21 12:37 Dose: 750 mg Documented by: Admin: 10/29/21 08:45 Dose: 750 mg Documented by: Admin: 10/28/21 20:16 Dose: 750 mg Documented by: Admin: 10/28/21 17:49 Dose: Not Given Documented by: Admin: 10/28/21 14:17 Dose: Not Given Documented by: Admin: 10/28/21 10:53 Dose: Not Given Documented by: Admin: 10/27/21 20:31 Dose: Not Given Documented by: Admin: 10/27/21 16:41 Dose: Not Given Documented by: Admin: 10/27/21 13:02 Dose: Not Given Documented by: Admin: 10/27/21 08:42 Dose: Not Given Documented by: Admin: 10/26/21 21:36 Dose: 750 mg Documented by: Admin: 10/26/21 17:44 Dose: 750 mg Documented by: Admin: 10/26/21 13:56 Dose: 750 mg Documented by: SHELBY Metoclopramide HCl (Metoclopramide 10 Mg/2 Ml Vial) 10 mg IV Q6 RJ Last Admin: 10/31/21 11:40 Dose: 10 mg Documented by: Admin: 10/31/21 05:49 Dose: 10 mg Documented by: Admin: 10/31/21 00:19 Dose: 10 mg Documented by: Admin: 10/30/21 17:13 Dose: 10 mg Documented by: Admin: 10/30/21 11:05 Dose: 10 mg Documented by: Admin: 10/30/21 05:33 Dose: 10 mg Documented by: Admin: 10/29/21 23:53 Dose: 10 mg Documented by: Admin: 10/29/21 17:28 Dose: 10 mg Documented by: Admin: 10/29/21 12:36 Dose: 10 mg Documented by: Admin: 10/29/21 05:19 Dose: 10 mg Documented by: Admin: 10/29/21 00:37 Dose: 10 mg Documented by: Admin: 10/28/21 19:49 Dose: 10 mg Documented by: Admin: 10/27/21 20:29 Dose: 10 mg Documented by: PEG Ondansetron HCl (Ondansetron 4 Mg/2 Ml Vial) 4 mg IV Q6HP PRN PRN Reason: Nausea And Vomiting Last Admin: 10/30/21 13:28 Dose: 4 mg Documented by: Admin: 10/27/21 18:43 Dose: 4 mg Documented by: Admin: 10/27/21 13:45 Dose: 4 mg Documented by: CARLO Oxycodone HCl (Oxycodone Hcl 5 Mg Tablet) 10 mg PO Q4HP PRN; Protocol PRN Reason: Per Pain Protocol Last Admin: 10/30/21 21:33 Dose: 10 mg Documented by: Admin: 10/30/21 11:05 Dose: 10 mg Documented by: Admin: 10/30/21 05:33 Dose: 10 mg Documented by: Admin: 10/29/21 23:53 Dose: 10 mg Documented by: Admin: 10/29/21 09:02 Dose: 10 mg Documented by: Admin: 10/27/21 06:03 Dose: 10 mg Documented by: Admin: 10/26/21 21:37 Dose: 10 mg Documented by: KAMRAN Pilocarpine Hcl 5 Mg (Tablet) 1 dose PO TID [facility] Last Admin: 10/31/21 08:20 Dose: 1 dose Documented by: Admin: 10/30/21 20:25 Dose: 1 dose Documented by: Admin: 10/30/21 15:33 Dose: 1 dose Documented by: Admin: 10/30/21 08:33 Dose: 1 dose Documented by: Admin: 10/29/21 20:34 Dose: 1 dose Documented by: Admin: 10/29/21 14:33 Dose: Not Given Documented by: Admin: 10/29/21 09:16 Dose: Not Given Documented by: Admin: 10/28/21 20:17 Dose: Not Given Documented by: Admin: 10/28/21 14:17 Dose: Not Given Documented by: Admin: 10/28/21 10:34 Dose: Not Given Documented by: Admin: 10/27/21 20:31 Dose: Not Given Documented by: Admin: 10/27/21 15:26 Dose: Not Given Documented by: Admin: 10/27/21 08:21 Dose: Not Given Documented by: Admin: 10/26/21 21:38 Dose: Not Given Documented by: Admin: 10/26/21 14:54 Dose: Not Given Documented by: SHELBY Sildenafil (Pulm. (Hypertension) 20 Mg) 1 dose PO TID [facility] Admin: 10/31/21 08:00 Dose: Not Given Documented by: Admin: 10/30/21 20:25 Dose: Not Given Documented by: Admin: 10/30/21 15:33 Dose: Not Given Documented by: Admin: 10/30/21 08:34 Dose: Not Given Documented by: Admin: 10/29/21 20:35 Dose: Not Given Documented by: Admin: 10/29/21 14:33 Dose: Not Given Documented by: Admin: 10/29/21 09:16 Dose: Not Given Documented by: Admin: 10/28/21 20:17 Dose: Not Given Documented by: Admin: 10/28/21 14:17 Dose: Not Given Documented by: Admin: 10/28/21 10:34 Dose: Not Given Documented by: Admin: 10/27/21 20:31 Dose: Not Given Documented by: Admin: 10/27/21 15:26 Dose: Not Given Documented by: Admin: 10/27/21 08:21 Dose: Not Given Documented by: Admin: 10/26/21 21:38 Dose: Not Given Documented by: Admin: 10/26/21 14:54 Dose: Not Given Documented by: SHELBY Polyethylene Glycol (Polyethylene Glycol 3350 17 Gm Packet) 17 gm PO BID [facility] Admin: 10/31/21 07:59 Dose: 17 gm Documented by: Admin: 10/30/21 20:24 Dose: 17 gm Documented by: JOCELINE Potassium Chloride (Potassium Chloride 20 Meq Tablet) 40 meq PO BIDCC [facility] Admin: 10/31/21 07:58 Dose: 40 meq Documented by: Admin: 10/30/21 17:13 Dose: 40 meq Documented by: Admin: 10/30/21 08:33 Dose: 40 meq Documented by: Admin: 10/29/21 17:28 Dose: 40 meq Documented by: GARLAND Prednisone (Prednisone 10 Mg Tablet) 10 mg PO QDAY [facility] Last Admin: 10/31/21 07:58 Dose: 10 mg Documented by: Admin: 10/30/21 08:33 Dose: 10 mg Documented by: Admin: 10/29/21 08:45 Dose: 10 mg Documented by: Admin: 10/28/21 10:50 Dose: 10 mg Documented by: Admin: 10/27/21 08:33 Dose: 10 mg Documented by: CARLO Promethazine HCl (Promethazine 25 Mg/Ml Vial) 12.5 mg IV Q6HP PRN PRN Reason: Nausea And Vomiting Last Admin: 10/27/21 20:29 Dose: 12.5 mg Documented by: PEG Sodium Chloride (0.9 % Sodium Chloride 10 Ml Syringe) 10 ml IV Q8 [facility] Admin: 10/31/21 13:14 Dose: 10 ml Documented by: Admin: 10/31/21 05:49 Dose: 10 ml Documented by: Admin: 10/30/21 20:26 Dose: Not Given Documented by: Admin: 10/30/21 13:34 Dose: Not Given Documented by: Admin: 10/30/21 05:34 Dose: Not Given Documented by: Admin: 10/29/21 20:37 Dose: Not Given Documented by: Admin: 10/29/21 14:33 Dose: Not Given Documented by: Admin: 10/29/21 05:19 Dose: Not Given Documented by: Admin: 10/28/21 20:17 Dose: Not Given Documented by: Admin: 10/28/21 15:37 Dose: 10 ml Documented by: Admin: 10/28/21 06:22 Dose: Not Given Documented by: Admin: 10/27/21 20:30 Dose: Not Given Documented by: Admin: 10/27/21 13:47 Dose: Not Given Documented by: Admin: 10/27/21 05:18 Dose: Not Given Documented by: Admin: 10/26/21 21:37 Dose: 10 ml Documented by: Admin: 10/26/21 14:52 Dose: Not Given Documented by: SHELBY Shift Summary 10/31/21 01:42 Shift Summary by Kamryn Gold Primary Diagnosis: Parastomal hernia and rectal prolapse Registration Status: Day of Hospitalization: 10/26/2021 Date of Surgery (if applicable): 10/26/2021 Parastomal hernia repair with mesh, posterior proctopexy Pertinent Medical Dx/Issue(s): Hx of Raynaud's, Covid-19 & PE Interventions (wounds, diuresis, etc): Wound care, pain & nausea management Vital Signs with Trends: VSS on room air Neuro/Mental Status: A&Ox4 Meds (abo, pain, BP, etc): Scheduled Cefepime and Reglan. Oxycodone and benadryl prn x1 Lines/Tubes: PIV MARNIE with NS@50. MAURICIO drain to RLQ serosanguineous output. Ostomy LLQ, minimal output. O2, liter flow/saturations: Room air Lab/Rad results: 10/29 WBC 12.4, K+ 4.1 after replacement Elimination (remove Jauregui within 24h if appropriate): Voids in BR Activity: 1A with FWW and GB in halls and to BR Expected date of discharge: , possible sunday. Discharge Plan (needs, disposition, etc): Home with family when ready Additional info: no nausea this shift, tolerating all PO intake. Back pain better controlled with Kpad. Initialized on 10/31/21 01:42 - END OF NOTE
--- NOTE | 2021-11-01 14:24 | Operative Note ---
DATE OF OPERATION: 10/26/2021 PREOPERATIVE DIAGNOSES: Parastomal hernia and rectal prolapse. POSTOPERATIVE DIAGNOSIS: Parastomal hernia with rectal prolapse. PROCEDURE: Parastomal hernia repair with mesh and Ripstein posterior proctopexy. SURGEON: Elli Feldman MD FINDINGS: Moderate-sized parastomal hernia and full anorectal prolapse. PROCEDURE IN DETAIL: Under general anesthesia, the patient was placed in low lithotomy position. Her abdomen and perineum were prepped and draped in a sterile field. Time-out procedure was carried out as per protocol. A midline incision was made. There were adhesions to the peritoneum and in the pelvis. These adhesions were transected using Metzenbaum scissors. This was done until all of the bowel could be pushed into the upper abdomen. The upper abdomen was then packed off. The colon was then mobilized from loops of small bowel until it could be easily identified and followed through the anterior abdominal wall. The hernia pouch contained loops of small bowel which were dissected free and reduced into the upper abdomen. This left a large parastomal defect. The defect was closed primarily using interrupted #1 Prolene. Once this was done, a sheath of mesh graft was chosen and was fashioned to fit around the bowel as it entered the abdominal wall. The graft was initially attached to the abdominal wall using the SecureStrap stapler. This was done to give a good apposition of the bowel to the peritoneum. Once this was done, the bowel was then circumferentially sutured through and through the muscle in the parastomal area. This was done to give full fixation to the peritoneum and fascia. The wall of the bowel was then sutured to the mesh to prevent prolapse or herniation. This was done with a 2-0 Prolene. This was a sturdy attachment. Irrigation was carried out. This repair was completed and attention was turned to the rectum. The rectum had been previously identified and it was extremely mobile and protruded down into the deep pelvis. The rectum was on a large __ attachment. The peritoneum was dissected posteriorly until the rectum was circumferentially dissected, taking care not to injure the blood supply. Once this was done, the rectal stump was placed on stretch by the staff physical therapy assistant. A 3-inch sheet of mesh was then placed posterior to the rectum and sutured to the presacral fascia using 0 Prolene suture. This was done in the midline to prevent any ureteral injury or major vascular injury. Once this was done, the edges of the mesh were then brought anterior to the rectum and using 2-0 Prolene, the mesh was then sutured to the bowel using multiple sutures to prevent stretch down into the deep pelvis. There was still more laxity than was anticipated, so the full superior border of the mesh was then sutured to the base of the intestinal mesentery using full thickness sutures to prevent further prolapse. This gave good stability. The anus was inspected and the rectum no longer protruded through the anus. The anus and rectum were held in place using a sponge and a ring forceps that was pushed into the rectum to give maximum stretch of the distal rectum. This was pulled from the rectum without tension at the completion of the procedure. A #10 Marin drain was placed posterior to the repair and brought out in the right lower quadrant. Sponge, instrument, needles, and blade counts are verified as correct. The bowel was placed back in the pelvis and irrigation was carried out. The fascia was then closed in the midline using running locking #1 Prolene. Subcutaneous tissue was closed using 2-0 Monocryl. The skin was closed with dereje. The drain was secured with 2-0 nylon. The skin was closed with dereje. Tegaderm dressings were placed. The patient tolerated the procedure well. She was awakened and transferred to the postanesthetic care unit in satisfactory condition. LCS:atif Job ID: [id number] Doc ID: [id number] Elli Feldman M.D.
== END 2021-10-31 15:15 | disposition home or self-care (01) | DRG 330 ==
LOC: SUR 07:03 → MEDSUR 07:04
PROVIDERS: ADMIT Family Medicine Adult Medicine; ATTEND Family Medicine Adult Medicine

== ENCOUNTER 2021-11-12 18:51 | Inpatient (IN) ==
--- NOTE | 2021-11-12 18:59 | Emergency Department Note ---
HPI General Chief complaint: Nausea/Vomiting/Diarrhea Stated complaint: Vomiting Time Seen by Provider: 11/12/21 18:58 Source: patient Mode of arrival: wheelchair Limitations: no limitations History of Present Illness HPI Narrative: 81-year-old female presenting with nausea and vomiting. Patient had a parastomal hernia repair on October [address] Feldman. She has had intermittent episodes of nausea and vomiting since the surgery. She saw Dr. Feldman in clinic 2 days ago and seem to be doing well and having bowel movements through her stoma. For the last 2 days she has not been able to keep anything down and has has had multiple episodes of vomiting. Has not had bowel movement into her ostomy for the last 2 days and does not seem to be passing much gas. Endorses abdominal bloating but no abdominal pain. Related Data Home Medications Medication Instructions Recorded Confirmed calcium citrate 200 mg (950 mg) 200 mg PO DAILY 07/15/15 11/12/21 tablet omega-3 fatty acids-fish oil 300 1 each PO DAILY 07/15/15 11/12/21 mg-1,000 mg capsule multivitamin with minerals-folic 1 tab PO QDAY 09/28/20 11/12/21 acid 200 mcg chewable tablet aspirin 81 mg tablet,delayed 81 mg PO QDAY 10/20/21 11/12/21 release Previous Rx's Medication Instructions Recorded pilocarpine HCl 5 mg tablet 5 mg PO TID #90 tab 11/23/20 omeprazole 20 mg capsule,delayed 20 mg PO QDAY #90 cap 02/09/21 release lisinopril 40 mg tablet 40 mg PO QDAY 90 Days #90 tab 04/12/21 hydroxychloroquine 200 mg tablet 200 mg PO BID #180 tab 08/01/21 amlodipine 10 mg tablet 10 mg PO QDAY #30 tab 09/28/21 prednisone 10 mg tablet 10 mg PO QDAY #90 tab 09/28/21 promethazine 12.5 mg tablet 12.5 mg PO Q6H PRN #30 tab 11/10/21 Allergies Allergy/AdvReac Type Severity Reaction Status Date / Time Sulfa (Sulfonamide AdvReac Mild Unknown Verified 11/10/21 11:34 Antibiotics) Review of Systems ROS ROS Narrative: Narrative: Constitutional: Denies fever or chills ENT ED: Denies throat pain Cardiovascular: Denies chest pain Respiratory: Denies shortness of breath or cough Gastrointestinal: Reports nausea and vomiting; Denies abdominal pain Genitourinary: Denies dysuria Musculoskeletal: Denies back pain Integumentary: Denies rash Neurological: Denies headache Psychiatric: Denies anxiety Endocrine: Denies fatigue Hematological/Lymphatic: Denies easy bruising PFSH Narrative Patient History Narrative: Narrative: Medical/Surgical/Family History All Active Problems (Updated 11/12/21 @ 20:55 by Ryan Tamayo MD) Nausea and vomiting (Acute) Increased nausea and vomiting (Acute) Rib contusion (Acute) Rib pain (Acute) Trochanteric bursitis of both hips (Chronic) Degeneration of lumbar or lumbosacral intervertebral disc (Chronic) Hypertension, essential (Chronic) Joint pain (Chronic) Raynaud's syndrome (Chronic) Scleroderma (Chronic) Spondylolisthesis (Chronic) History of appendectomy (Chronic) History of back surgery (Chronic) History of cholecystectomy (Chronic) History of colectomy (Chronic) History of colonoscopy (Chronic 09/28/14) History of ear surgery (Chronic) History of esophagogastroduodenoscopy (Chronic 09/28/14) History of hysterectomy (Chronic) History of right hip replacement (Chronic) History of cataract surgery (Chronic) Dry mouth (Chronic) Prolapse of intestine (Chronic) Heartburn (Chronic) Sjogren's disease (Chronic) CREST syndrome (Chronic) Aftercare following joint replacement surgery (Chronic) History of hepatitis A (Chronic) Encounter for Health Maintenance Examination in Adult (Acute) Disorder of connective tissue (Chronic) Osteoarthritis (Chronic) Sicca complex (Chronic) Encounter for long-term (current) use of high-risk medication (Chronic) ILD (interstitial lung disease) (Chronic) Chronic GERD (Chronic) Renal mass, right (Chronic) 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 (Acute) 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) Insomnia (Chronic) Bilateral hand pain (Acute) Carpal tunnel syndrome (Chronic) Inflammatory arthropathy (Acute) Medicare annual wellness visit, subsequent (Acute) Incomplete bladder emptying (Acute) Urge incontinence (Acute) Constipation (Chronic) Alternating constipation and diarrhea (Acute) Parastomal hernia (Acute) Chronic cough (Acute) Parastomal hernia (Acute) Pneumonia due to COVID-19 virus (Acute) Pulmonary embolism (Acute) Hypoxemia (Acute) Hypertension (Chronic) Abdominal pain (Acute) Hypersomnia (Acute) Snoring (Acute) GERD with apnea (Acute) Colostomy status (Acute) Left-sided chest pain (Acute) History of deep venous thrombosis or pulmonary embolus (Acute) History of CREST syndrome (Acute) Rectal mucosa prolapse (Acute) Complete rectal prolapse with displacement of anal sphincter (Acute) Obstructive sleep apnea hypopnea, severe (Acute) Parastomal hernia with obstruction, without gangrene (Acute) Medical History (Updated 11/12/21 @ 20:55 by Ryan Tamayo MD) Aftercare following joint replacement surgery Right Bilateral hand pain Carpal tunnel syndrome Chronic GERD Constipation CREST syndrome Degeneration of lumbar or lumbosacral intervertebral disc Left Disorder of connective tissue Dry mouth due to Sjogren's and takes pilocarpine. discussed strategies to help improve dry mouth, uses multiple mouthwashes and lozenges. Encounter for Health Maintenance Examination in Adult encouraged healthy diet, exercise Encounter for long-term (current) use of high-risk medication GERD with apnea Heartburn omeprazole, stable on medication refilled today Hypersomnia Hypertension Hypertension, essential stable on 10 mg amlodipine. continue current regimen and plan to follow-up when she is here again in November Hypoxemia ILD (interstitial lung disease) Inflammatory arthropathy Insomnia Joint pain longterm (current) use of systemic steroids Medicare annual wellness visit, subsequent Obstructive sleep apnea hypopnea, severe Osteoarthritis 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 Prolapse of intestine has been evaluated by Dr. Perez 2017 [place] Raynaud's syndrome Renal mass, right Scleroderma Sicca complex Sjogren's disease Snoring Spondylolisthesis Left ACQ Trochanteric bursitis of both hips Surgical History (Updated 11/09/21 @ 09:44 by Kaila Perdomo CMA) History of appendectomy History of back surgery L4-[address] of [address] surgery Dr[address] Pham, 08/03/15 and 08/04/15 History of cholecystectomy History of colectomy History of colonoscopy (09/28/14) 10/01/14 showed signs of rectal prolapse, no microscopic colitis, multiple colon polyps, repeated 2015. Follow up with Jeanne Burkett for worsening prolapse symptoms, rpeat 2017 History of ear surgery Bilateral for stapedectomies History of esophagogastroduodenoscopy (09/28/14) 10/01/14 no evidence of celiac disease. No overt signs of crest syndrome, esophagus appeared a icteric and she was dilated. no evidence of H. pylori infection History of hernia repair 10/26/2021-parastomal hernia repair with mesh and Ripstein posterior proctopexy History of hysterectomy 35 years ago, tube and ovary removed. History of right hip replacement 07/19/15 History of shoulder replacement 09/2020. S/P abdominoplasty S/P hernia surgery Family History Father Malignant neoplasm father kidney cancer Stroke Mother Diabetes mellitus Essential hypertension Stroke Sister Malignant neoplasm of breast Has had 3x Malignant neoplasm Adrenal cancer Brother Essential hypertension Brother Lymphoma Brother Stroke Sister CHF (congestive heart failure) Rheumatoid arthritis Social History Smoking Status: Never smoker Alcohol Intake Frequency: does not drink Substance Use: does not use Exam Narrative Narrative: Narrative: General Limitations: no limitations General appearance: Present alert and in no apparent distress Head Head: Present atraumatic and normocephalic Eye Eye: Present normal appearance and EOMI; Absent scleral icterus or conjunctival injection ENT ENT: Present mucous membranes moist Neck Neck: Present trachea midline Chest Chest: Present symmetric chest wall rise Respiratory Respiratory: Present normal lung sounds bilaterally; Absent respiratory distress, rales/crackles, wheezes, stridor or accessory muscle use Cardiovascular Cardiovascular: Present regular rate and normal rhythm; Absent systolic murmur or diastolic murmur Adbominal Abdominal: Present soft, distention (mild) and other (Ostomy with no stool in the bag and minimal gas); Absent tenderness, guarding, rebound or rigidity Extremities Extremities: Present normal inspection; Absent pretibial edema Neurological Neurological: Present alert and oriented X3 Psychiatric Psychiatric: Present normal affect and normal mood Skin Skin: Present warm (WNL) and dry Course Consultations Consultation #1: Dr. Feldman, general surgery Time: 20:50 Vital Signs Vital signs: Vital Signs Temperature 97.0 F 11/12/21 18:54 Pulse Rate 106 H 11/12/21 18:54 Respiratory Rate 16 11/12/21 18:54 Blood Pressure 137/83 11/12/21 18:54 Pulse Oximetry (%) 97 11/12/21 18:54 Temperature 98.1 F 11/12/21 21:21 Pulse Rate 87 11/12/21 21:21 Respiratory Rate 16 11/12/21 21:21 Blood Pressure 147/77 11/12/21 21:21 Pulse Oximetry (%) 93 11/12/21 21:21 MDM MDM Narrative Medical decision making narrative: 81-year-old female presenting with nausea and vomiting. Concern for decreased output from her stoma. Normal saline bolus and Zofran ordered. Will obtain labs and consult Dr. Feldman. Labs notable for a leukocytosis to 18.0. I spoke with Dr. Feldman of general surgery who would like to admit the patient into the hospital for further management. Admit and holding orders placed. Patient made NPO. Maintenance IV fluids ordered. Lab Data Lab results reviewed: Yes I reviewed the patient's lab results. Result diagrams: 11/12/21 19:05 11/12/21 19:18 Labs: Lab Results 11/12/21 11/12/21 Range/Units 19:05 19:18 WBC 18.0 H (4.5-11.0) K/mcL RBC 4.79 (3.59-5.38) M/mcL Hgb 13.0 (11.2-15.7) g/dL Hct 41.3 (34.1-44.9) % MCV 86.2 (80.0-100.0) fL MCH 27.1 (26.0-34.0) pg MCHC 31.5 (31.0-36.0) g/dL RDW 16.2 H (11.5-14.5) % Plt Count 544 H (140-440) K/mcL MPV 10.5 H (7.4-10.4) fL Neut % (Auto) 85.5 H (38.0-78.0) % Lymph % (Auto) 7.8 L (15.5-49.0) % [place] % (Auto) 5.6 (1.0-12.0) % Eos % (Auto) 0.4 (0.0-7.0) % Baso % (Auto) 0.7 (0.0-2.0) % Lymph # (Auto) 1.40 L (1.50-4.80) K/mcL [place] # (Auto) 1.01 H (0.10-0.90) K/mcL Eos # (Auto) 0.08 (0.00-0.70) K/mcL Baso # (Auto) 0.12 (0.00-0.30) K/mcL Absolute Neutrophils 15.35 H (1.80-8.00) K/mcL Sodium 145 (133-145) mmol/L Potassium 3.4 (3.3-5.1) mmol/L Chloride 94 L (96-108) mmol/L Carbon Dioxide 33 H (22-30) mmol/L Anion Gap 18.0 H (8.0-16.0) BUN 15 (8-23) mg/dL Creatinine 1.0 (0.6-1.1) mg/dL GFR Calculation 53 Glucose 127 H (70-105) mg/dL Calcium 10.1 (8.6-10.4) mg/dL Total Bilirubin 0.3 (0.1-1.0) mg/dL AST 26 (<32) U/L ALT 16 (<40) U/L Alkaline Phosphatase 100 (39-117) U/L Total Protein 6.9 (5.9-8.4) gm/dL Albumin 4.2 (3.2-5.2) gm/dL Globulin 2.7 (2.2-3.7) gm/dL Albumin/Globulin Ratio 1.6 (1.0-2.3) Lipase 11 (7-60) U/L Discharge Plan Patient/Caregiver Discharge Instructions Pt seen by ASSISTANT PROFESSOR OF CRIMINAL JUSTICE/PA only: No Clinical Impression: Nausea and vomiting Patient Disposition: Xfer As Inpt ([facility]) Condition: Fair Discharge Date/Time: 11/12/21 21:15
[2021-11-12] MEDS ORDERED: 0.9 % SODIUM CHLORIDE 1,000 ML IV ONE (19:05)
[2021-11-12] MEDS ORDERED: ONDANSETRON 4 MG/2 ML VIAL IV ONE (19:05)
[2021-11-12 20:00] LABS: Basophils # (Auto) 0.12 K/mcL (0.00-0.30); Basophils % (Auto) 0.7 % (0.0-2.0); Eosinophils # (Auto) 0.08 K/mcL (0.00-0.70); Eosinophils % (Auto) 0.4 % (0.0-7.0); Hematocrit 41.3 % (34.1-44.9); Lymphocytes % (Auto) 7.8 % (15.5-49.0); Mean Cell Volume 86.2 fL (80.0-100.0); Mean Corpuscular HGB Conc 31.5 g/dL (31.0-36.0); Mean Platelet Volume 10.5 fL (7.4-10.4); Monocytes # (Auto) 1.01 K/mcL (0.10-0.90); Monocytes % (Auto) 5.6 % (1.0-12.0); Neutrophils % (Auto) 85.5 % (38.0-78.0); Platelet Count 544 K/mcL (140-440); RBC 4.79 M/mcL (3.59-5.38); Red Cell Distribution Width 16.2 % (11.5-14.5)
[2021-11-12 20:21] LABS: ALT/SGPT 16 U/L (<40); AST/SGOT 26 U/L (<32); Albumin 4.2 gm/dL (3.2-5.2); Albumin/Globulin Ratio 1.6 (1.0-2.3); Alkaline Phosphatase 100 U/L (39-117); Bilirubin,Total 0.3 mg/dL (0.1-1.0); Blood Urea Nitrogen 15 mg/dL (8-23); Calcium 10.1 mg/dL (8.6-10.4); Carbon Dioxide 33 mmol/L (22-30); Chloride 94 mmol/L (96-108); Globulin 2.7 gm/dL (2.2-3.7); Glomerular Filtration Rate 53; Glucose 127 mg/dL (70-105)
[2021-11-12] MEDS ORDERED: ONDANSETRON 4 MG/2 ML VIAL IV PRN (20:46)
[2021-11-12] MEDS ORDERED: PROMETHAZINE 25 MG TABLET PO PRN (21:53)
[2021-11-12] MEDS ORDERED: fentaNYL 100 MCG/2 ML VIAL IV PRN (21:56)
--- NOTE | 2021-11-12 22:06 | General Surg History&Physical ---
HPI History of Present Illness Patient information: Note initiated : 11/12/21 at 10:05 pm Service Date, if different from initiated Date: [] Patient: Joceline Venegas a 81 y/o F admitted on 11/12/21 for Vomiting. Chief Complaint: [] Chief complaint: Recurrent nausea and vomiting History of present illness: Ms. Venegas is a 81 year old F who is status post parastomal hernia repair with mesh and a 60 posterior proctopexy for total anal rectal prolapse. She was seen in the office on 10 November. She complains of poor appetite and multiple episodes of nausea with vomiting. She was afebrile and did not have major dis comfort in her operative area. CT of the abdomen and pelvis did not show any evidence of obstruction. Her white count was increased to 15,000 and sed rate was 44. She was treated symptomatically with promethazine orally. Patient was supposed to return to the office on 14 November however she had increased complaint of nausea with vomiting and is seen in the emergency room. Her white count has increased to 18,000. Clinical exam is actually unremarkable but patient is admitted for control of her nausea vomiting and poor pending repeat studies. Constitutional Constitutional: Present anorexia, fatigue, malaise and weakness EENT Ears: Present decreased hearing Cardiovascular Cardiovascular: Absent chest pain with activity, dyspnea on exertion or palpatations Respiratory Respiratory: Absent cough, wheezing or chest congestion Gastrointestinal Gastrointestinal: Present abdominal pain, change in bowel habits, dyspepsia, early satiety, heartburn, nausea and vomiting Genitourinary Genitourinary: Present flank pain (Right flank pain); Absent change in urinary stream or difficulty voiding Musculoskeletal Musculoskeletal: Present arthralgias, muscle weakness, myalgias, numbness and stiffness Neurological Neurological: Present abnormal gait; Absent headache(s), numbness or syncope Psychiatric Psychiatric: Absent abnormal sleep pattern or depression Hematologic/Lymphatic Hematologic/Lymphatic: Absent easy bleeding, easy bruising or lymphadenopathy Allergic/Immunologic Allergic/Immunologic: Absent throat swelling, itchy eyes, uticaria, wheezing or lip swelling PFSH PFSH All Active Problems (Updated 11/14/21 @ 15:50 by Elli Feldman MD) Right flank pain (Acute) Nausea and vomiting (Acute) Increased nausea and vomiting (Acute) Rib contusion (Acute) Rib pain (Acute) Trochanteric bursitis of both hips (Chronic) Degeneration of lumbar or lumbosacral intervertebral disc (Chronic) Hypertension, essential (Chronic) Joint pain (Chronic) Raynaud's syndrome (Chronic) Scleroderma (Chronic) Spondylolisthesis (Chronic) History of appendectomy (Chronic) History of back surgery (Chronic) History of cholecystectomy (Chronic) History of colectomy (Chronic) History of colonoscopy (Chronic 09/28/14) History of ear surgery (Chronic) History of esophagogastroduodenoscopy (Chronic 09/28/14) History of hysterectomy (Chronic) History of right hip replacement (Chronic) History of cataract surgery (Chronic) Dry mouth (Chronic) Prolapse of intestine (Chronic) Heartburn (Chronic) Sjogren's disease (Chronic) CREST syndrome (Chronic) Aftercare following joint replacement surgery (Chronic) History of hepatitis A (Chronic) Encounter for Health Maintenance Examination in Adult (Acute) Disorder of connective tissue (Chronic) Osteoarthritis (Chronic) Sicca complex (Chronic) Encounter for long-term (current) use of high-risk medication (Chronic) ILD (interstitial lung disease) (Chronic) Chronic GERD (Chronic) Renal mass, right (Chronic) 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 (Acute) 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) Insomnia (Chronic) Bilateral hand pain (Acute) Carpal tunnel syndrome (Chronic) Inflammatory arthropathy (Acute) Medicare annual wellness visit, subsequent (Acute) Incomplete bladder emptying (Acute) Urge incontinence (Acute) Constipation (Chronic) Alternating constipation and diarrhea (Acute) Parastomal hernia (Acute) Chronic cough (Acute) Parastomal hernia (Acute) Pneumonia due to COVID-19 virus (Acute) Pulmonary embolism (Acute) Hypoxemia (Acute) Hypertension (Chronic) Abdominal pain (Acute) Hypersomnia (Acute) Snoring (Acute) GERD with apnea (Acute) Colostomy status (Acute) Left-sided chest pain (Acute) History of deep venous thrombosis or pulmonary embolus (Acute) History of CREST syndrome (Acute) Rectal mucosa prolapse (Acute) Complete rectal prolapse with displacement of anal sphincter (Acute) Obstructive sleep apnea hypopnea, severe (Acute) Parastomal hernia with obstruction, without gangrene (Acute) Medical History Aftercare following joint replacement surgery Right Bilateral hand pain Carpal tunnel syndrome Chronic GERD Constipation CREST syndrome Degeneration of lumbar or lumbosacral intervertebral disc Left Disorder of connective tissue Dry mouth due to Sjogren's and takes pilocarpine. discussed strategies to help improve dry mouth, uses multiple mouthwashes and lozenges. Encounter for Health Maintenance Examination in Adult encouraged healthy diet, exercise Encounter for long-term (current) use of high-risk medication GERD with apnea Heartburn omeprazole, stable on medication refilled today Hypersomnia Hypertension Hypertension, essential stable on 10 mg amlodipine. 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 Perez 2017 [place] Raynaud's syndrome Renal mass, right Scleroderma Sicca complex Sjogren's disease Snoring Spondylolisthesis Left ACQ Trochanteric bursitis of both hips Surgical History History of appendectomy History of back surgery L4-[address] Pham, 08/03/15 and 08/04/15 History of cholecystectomy History of colectomy History of colonoscopy (09/28/14) 10/01/14 showed signs of rectal prolapse, no microscopic colitis, multiple colon polyps, repeated 2015. Follow up with Jeanne Burkett for worsening prolapse symptoms, rpeat 2018 History of ear surgery Bilateral for stapedectomies History of esophagogastroduodenoscopy (09/28/14) 10/01/14 no evidence of celiac disease. No overt signs of crest syndrome, esophagus appeared a icteric and she was dilated. no evidence of H. pylori infection History of hernia repair 10/26/2021-parastomal hernia repair with mesh and Ripstein posterior proctopexy History of hysterectomy 35 years ago, tube and ovary removed. History of right hip replacement 07/19/15 History of shoulder replacement 09/2020. S/P abdominoplasty S/P hernia surgery Family History Father Malignant neoplasm father kidney cancer Stroke Mother Diabetes mellitus Essential hypertension Stroke Sister Malignant neoplasm of breast Has had 3x Malignant neoplasm Adrenal cancer Brother Essential hypertension Brother Lymphoma Brother Stroke Sister CHF (congestive heart failure) Rheumatoid arthritis Social History adopted: No caregiver/support person: No foster care: No household members: spouse housing: house lives independently: Yes marital status: education level: high school service: No intermediate: No occupational status: retired pets and animals: Yes pets and animals: cat(s) hx recent travel: No sexually active: No smoking status: Never smoker alcohol intake frequency: does not drink substance use type: does not use MEDS/ALLERGIES Home Medications and Allergies Home Medications Medication Instructions Recorded Confirmed Type calcium citrate 200 mg (950 mg) 200 mg PO DAILY 07/15/15 11/12/21 History tablet omega-3 fatty acids-fish oil 300 1 each PO DAILY 07/15/15 11/12/21 History mg-1,000 mg capsule multivitamin with minerals-folic 1 tab PO QDAY 09/28/20 11/12/21 History acid 200 mcg chewable tablet pilocarpine HCl 5 mg tablet 5 mg PO TID #90 tab 11/23/20 11/12/21 Rx omeprazole 20 mg capsule,delayed 20 mg PO QDAY #90 cap 02/09/21 11/12/21 Rx release lisinopril 40 mg tablet 40 mg PO QDAY 90 Days #90 tab 04/12/21 11/12/21 Rx hydroxychloroquine 200 mg tablet 200 mg PO BID #180 tab 08/01/21 11/12/21 Rx amlodipine 10 mg tablet 10 mg PO QDAY #30 tab 09/28/21 11/12/21 Rx prednisone 10 mg tablet 10 mg PO QDAY #90 tab 09/28/21 11/12/21 Rx aspirin 81 mg tablet,delayed 81 mg PO QDAY 10/20/21 11/12/21 History release promethazine 12.5 mg tablet 12.5 mg PO Q6H PRN #30 tab 11/10/21 11/12/21 Rx Allergies Allergy/AdvReac Type Severity Reaction Status Date / Time Sulfa (Sulfonamide AdvReac Mild Unknown Verified 11/10/21 11:34 Antibiotics) Physical Examination Vital Signs Vital signs: Temp Pulse Resp BP Pulse Ox 98.1 F 87 16 147/77 93 11/12/21 21:21 11/12/21 21:21 11/12/21 21:21 11/12/21 21:21 11/12/21 21:21 General physical appearance General physical exam: moderate distress, moderate pain and chronically ill Eyes Eye exam: PERRL and normal ocular movement ENT ENT exam: no congestion Head Head exam IM: Present atraumatic, normal inspection and normocephalic Neck Neck exam: no masses, trachea midline, no lymphadenopathy and no venous distension; negative no bruits Cardiovascular Cardiovascular exam IM: Present normal rate and rhythm, RRR, +S1 and +S2; Absent gallop or JVD Respiratory Respiratory exam: normal expansion, normal respiratory effort and clear to auscultation Abdomen Abdomen: Present bowel sounds (Good active bowel sounds) and surgical scars (Healing surgical incision); Absent tender or distended (No major distention) Hernia: Absent incisional Rectum Rectum: Present other (No evidence of prolapse of the rectum) Integumentary Integumentary: Present other (Chronic skin changes of extremities secondary to scleroderma and Raynaud's syndrome) Neurologic Neurologic: Present normal coordination; Absent normal sensation (Decreased sensation in fingers) Musculoskeletal Musculoskeletal: Present normal gait and normal posture Psychiatric Psychiatric: Present oriented to time, oriented to person, oriented to place, speech is normal and memory intact Results Labs Result diagrams: 11/14/21 05:21 11/14/21 05:21 Labs: Abnormal lab results 11/12/21 11/12/21 Range/Units 19:05 19:18 WBC 18.0 H (4.5-11.0) K/mcL RDW 16.2 H (11.5-14.5) % Plt Count 544 H (140-440) K/mcL MPV 10.5 H (7.4-10.4) fL Neut % (Auto) 85.5 H (38.0-78.0) % Lymph % (Auto) 7.8 L (15.5-49.0) % Lymph # (Auto) 1.40 L (1.50-4.80) K/mcL [place] # (Auto) 1.01 H (0.10-0.90) K/mcL Absolute Neutrophils 15.35 H (1.80-8.00) K/mcL Chloride 94 L (96-108) mmol/L Carbon Dioxide 33 H (22-30) mmol/L Anion Gap 18.0 H (8.0-16.0) Glucose 127 H (70-105) mg/dL Diabetes panel 11/12/21 Range/Units 19:18 Sodium 145 (133-145) mmol/L Potassium 3.4 (3.3-5.1) mmol/L Chloride 94 L (96-108) mmol/L Carbon Dioxide 33 H (22-30) mmol/L BUN 15 (8-23) mg/dL Creatinine 1.0 (0.6-1.1) mg/dL Glucose 127 H (70-105) mg/dL Calcium 10.1 (8.6-10.4) mg/dL AST 26 (<32) U/L ALT 16 (<40) U/L Alkaline Phosphatase 100 (39-117) U/L Total Protein 6.9 (5.9-8.4) gm/dL Albumin 4.2 (3.2-5.2) gm/dL Calcium panel 11/12/21 Range/Units 19:18 Calcium 10.1 (8.6-10.4) mg/dL Albumin 4.2 (3.2-5.2) gm/dL Pituitary panel 11/12/21 Range/Units 19:18 Sodium 145 (133-145) mmol/L Potassium 3.4 (3.3-5.1) mmol/L Chloride 94 L (96-108) mmol/L Carbon Dioxide 33 H (22-30) mmol/L BUN 15 (8-23) mg/dL Creatinine 1.0 (0.6-1.1) mg/dL Glucose 127 H (70-105) mg/dL Calcium 10.1 (8.6-10.4) mg/dL Adrenal panel 11/12/21 Range/Units 19:18 Sodium 145 (133-145) mmol/L Potassium 3.4 (3.3-5.1) mmol/L Chloride 94 L (96-108) mmol/L Carbon Dioxide 33 H (22-30) mmol/L BUN 15 (8-23) mg/dL Creatinine 1.0 (0.6-1.1) mg/dL Glucose 127 H (70-105) mg/dL Calcium 10.1 (8.6-10.4) mg/dL Total Bilirubin 0.3 (0.1-1.0) mg/dL AST 26 (<32) U/L ALT 16 (<40) U/L Alkaline Phosphatase 100 (39-117) U/L Total Protein 6.9 (5.9-8.4) gm/dL Albumin 4.2 (3.2-5.2) gm/dL All other labs normal. 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
[2021-11-12] MEDS: DEXTROSE 5%-1/2NS 1,000 ML IV SCH (22:26)
[2021-11-12] MEDS: PIPERACILLIN SODIUM/TAZOBACTAM 3.375 GM in DEXTROSE 5% IN WATER 50 ML IV SCH (22:35)
[2021-11-12] MEDS: PANTOPRAZOLE 40 MG VIAL IV SCH (22:35)
[2021-11-12] MEDS ORDERED: PANTOPRAZOLE 40 MG VIAL IV ONE (22:41)
[2021-11-12] MEDS: 0.9 % SODIUM CHLORIDE 10 ML SYRINGE IV SCH (23:53)
[2021-11-13] MEDS ORDERED: fentaNYL 100 MCG/2 ML VIAL IV ONE (00:41)
[2021-11-13] MEDS: PIPERACILLIN SODIUM/TAZOBACTAM 3.375 GM in DEXTROSE 5% IN WATER 50 ML IV SCH (04:42)
[2021-11-13] MEDS: 0.9 % SODIUM CHLORIDE 10 ML SYRINGE IV SCH ×3 (05:49→23:05)
[2021-11-13] MEDS: METOCLOPRAMIDE 10 MG/2 ML VIAL IV SCH ×4 (05:49→23:05)
[2021-11-13] MEDS ORDERED: METOCLOPRAMIDE 10 MG/2 ML VIAL ONE (05:55)
[2021-11-13 06:42] LABS: Basophils # (Auto) 0.11 K/mcL (0.00-0.30); Eosinophils # (Auto) 0.28 K/mcL (0.00-0.70); Eosinophils % (Auto) 2.5 % (0.0-7.0); Hematocrit 31.8 % (34.1-44.9); Lymphocytes % (Auto) 15.9 % (15.5-49.0); Mean Cell Volume 88.1 fL (80.0-100.0); Mean Corpuscular HGB Conc 31.4 g/dL (31.0-36.0); Mean Platelet Volume 10.2 fL (7.4-10.4); Monocytes % (Auto) 7.1 % (1.0-12.0); Neutrophils % (Auto) 73.5 % (38.0-78.0); Platelet Count 355 K/mcL (140-440); RBC 3.61 M/mcL (3.59-5.38); Red Cell Distribution Width 16.2 % (11.5-14.5); WBC 11.3 K/mcL (4.5-11.0)
[2021-11-13 07:43] LABS: ALT/SGPT 12 U/L (<40); AST/SGOT 16 U/L (<32); Albumin/Globulin Ratio 1.4 (1.0-2.3); Alkaline Phosphatase 70 U/L (39-117); Bilirubin,Direct < 0.2 mg/dL (0-0.3); Bilirubin,Total 0.3 mg/dL (0.1-1.0); Blood Urea Nitrogen 15 mg/dL (8-23); Calcium 8.3 mg/dL (8.6-10.4); Carbon Dioxide 31 mmol/L (22-30); Chloride 102 mmol/L (96-108); Globulin 2.2 gm/dL (2.2-3.7); Glomerular Filtration Rate 60; Glucose 100 mg/dL (70-105); Lactate Dehydrogenase 200 U/L (135-225); Triglycerides 84 mg/dL (<150); Uric Acid 4.5 mg/dL (2.5-8.0)
[2021-11-13] MEDS: PANTOPRAZOLE 40 MG VIAL IV SCH ×2 (08:12→17:48)
[2021-11-13] MEDS: POTASSIUM CHLORIDE 40 MEQ in DEXTROSE 5% IN WATER 500 ML IV SCH ×2 (08:39→15:41)
--- NOTE | 2021-11-13 13:16 | General Surgery Progress Note ---
SUBJECTIVE Subjective Patient information: Note initiated : 11/13/21 at 1:06 pm Service Date, if different from initiated Date: [] Patient: Joceline Venegas 81 y/o F admitted on 11/12/21 for Vomiting. Chief Complaint: [] Principal diagnosis: Recurrent nausea vomiting;; Gastric outlet obstruction Interval history: Patient is improved. She has less nausea. She had some output through her stoma last evening and today. She has had a small amount of gas. She has mild pain on the right side. She has been afebrile. Constitutional Vitals: Vital Signs Temp Pulse Resp BP Pulse Ox 97.3 F 59 L 16 128/58 97 11/13/21 11:57 11/13/21 11:57 11/13/21 11:57 11/13/21 11:57 11/13/21 11:57 Period Temp Pulse Resp BP Sys/Caicedo Pulse Ox Last 24 Hr 97.0 F-101.4 F 59-106 16-16 116-165/58-84 91-100 Intake and Output 11/12/21 11/13/21 11/13/21 21:59 05:59 13:59 Intake Total 1000 100 Output Total 300 350 Balance 1000 -200 -350 Weight 135 lb 6.4 oz Intake & Output: Intake & Output 11/12/21 11/13/21 11/13/21 21:59 05:59 13:59 Intake Total 1000 100 Output Total 300 350 Balance 1000 -200 -350 Weight 135 lb 6.4 oz Intake: IV 1000 100 Sodium Chloride 0.9% 1,000 ml @ 1000 Wide Open IV .Q0M ONE Rx#: [id number] Zosyn 3.375 gm In Dextrose 5% 100 in Water 50 ml @ 100 mls/hr IV Q6H [facility] Rx#:[id number] Oral 0 Output: Void Amount 350 Stool 300 Other: Meal Breakfast Percent of Meal Consumed NPO Feeding Ability Independent Urine Appearance Clear Clear Urine Color Bright Yellow Straw Urine Odor Normal Stool Color Brown Yellow Stool Consistency Loose # Voids 1 Head Head exam: Present atraumatic, normal inspection and normocephalic Eye Eye exam: Present EOMI and PERRL Pupils: Present normal accommodation ENT ENT exam: Present mucous membranes moist and normal oropharynx Neck Neck exam: Present full ROM and normal inspection; Absent lymphadenopathy Respiratory Respiratory exam: Present normal respiratory exam and CTAB Cardiovascular Cardiovascular exam: Present normal rate and rhythm, RRR, +S1 and +S2; Absent JVD GI/Abdominal GI/Abdominal exam: Present normal bowel sounds, soft and tenderness (Mild tenderness of cystic mass right upper quadrant) Extremities Exam Extremities exam: Present full ROM and neurovascular intact Neurological Exam Neurological exam: Present oriented X3 and reflexes normal; Absent motor sensory deficit Psychiatric Psychiatric exam: Present normal affect and normal mood A/P Assessment and plan (1) Nausea and vomiting: Status: Acute (2) intermediate (current) use of systemic steroids: Status: Chronic (3) Parastomal hernia: Status: Acute Qualifiers: Obstruction and gangrene presence: without obstruction or gangrene Qualified Code(s): K43.5 - Parastomal hernia without obstruction or gangrene (4) Colostomy status: Status: Acute Plan CT with oral contrast Continue present medication Time Spent With Patient Time: Total time spent is greater than 50% in coordination of care (as documented) at patient's floor/unit and/or counseling patient:
--- NOTE | 2021-11-13 13:23 | XRay Report ---
CLINICAL INFORMATION: F/u of ileus COMPARISON: 10/30/2021 FINDINGS: Scattered air-fluid levels within nondilated small and large bowel appreciated.. There is no free air, soft tissue mass, organomegaly or pathologic calcification. IMPRESSION: Mild versus ileus. Interpreted and Authenticated by: Daniel Hanna 11/13/21
[2021-11-13] MEDS: DEXTROSE 5%-1/2NS 1,000 ML IV SCH ×2 (13:30→23:04)
[2021-11-13] MEDS ORDERED: IOPAMIDOL 100 ML BOTTLE IV ONE (13:53)
[2021-11-13] MEDS: PIPERACILLIN SODIUM/TAZOBACTAM 2.25 GM in DEXTROSE 5% IN WATER 50 ML IV SCH ×2 (14:17→20:34)
--- NOTE | 2021-11-13 14:53 | Cat Scan Report ---
CLINICAL INFORMATION: Upper abdominal pain. Evaluate for upper GI tract obstruction by large cyst COMPARISON: None. TECHNIQUE: Following water enteric contrast, 80 cc of Isovue-370 were injected intravenously, and 60 seconds later, 0.625 mm helical slices were obtained from the mid heart through the subtrochanteric regions. Following reconstruction, 2.5 mm sagittal, coronal and axial reformatted images were processed and reviewed at bone, lung and soft tissue windows. Five minutes later, 0.625 mm helical slices were obtained from the mid heart through the kidneys and viewed at soft tissue windows.The exam was performed using radiation dose optimization techniques including, but not limited to, automated exposure control, adjustment of the mA and/or kV according to patient size and use of iterative reconstruction technique. FINDINGS: The lung apices show chronic bronchitis with scattered interstitial fibrosis and honeycombing in the lower lobe periphery. This is suggestive of UIP. Show slight progression. No effusions. The visualized heart is mildly enlarged calcification in the aortic valve coronary artery atherosclerotic calcification. The visualized esophagus is mildly dilated Abdominal images show mild fatty change within the liver, but no focal hepatic lesions. The gallbladder is surgically absent. Common bile duct is mildly dilated: 11 mm with smooth tapering in the ampullary region. Pancreatic duct also mildly dilated: 4 mm. This is unchanged and compatible post cholecystectomy papillary stenosis. Pancreatic parenchyma is, otherwise, normal. The spleen, both adrenal glands are normal. Aorta is normal diameter with scattered calcific plaque. There is heavy calcific plaque in the renal artery orifices. 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 15 cm cyst projecting from the superior pole of the right kidney 8.5 cm cyst projecting from the inferior pole the left kidney are unchanged. Parapelvic cysts in left kidney and 2.3 cm cyst superior pole left kidney stable. There is no free air, free fluid or adenopathy Pelvic images show urinary bladder is grossly normal. Uterus not identified but there is beam hardening artifact artifact from hip prostheses obscures this region.. Stomach, small and large bowel are symmetrically dilated compatible with moderate ileus. A colostomy is seen in the midabdomen. Small amount of free fluid noted deep true pelvis and there is no free air. Bone windows show degenerative changes in lumbar spine right hip prostheses unremarkable. IMPRESSION: Moderate ileus. No CT evidence for bowel obstruction 15 cm simple cyst projecting from the superior pole of the right kidney. 8 cm simple cyst projects from the inferior pole right kidney. Both unchanged. Mild common bile duct and pancreatic duct dilatation suggesting post cholecystectomy papillary stenosis. No change. Scattered region of interstitial fibrosis honeycombing and peripheral lower lobe chronic bronchitis. Patient may have UIP Mild cardiomegaly with calcification aortic valve. Interpreted and Authenticated by: Daniel Hanna 11/13/21
[2021-11-13] MEDS ORDERED: METOCLOPRAMIDE 10 MG/2 ML VIAL IV SCH (22:00)
[2021-11-14] MEDS: PIPERACILLIN SODIUM/TAZOBACTAM 2.25 GM in DEXTROSE 5% IN WATER 50 ML IV SCH ×3 (01:22→12:17)
[2021-11-14] MEDS: METOCLOPRAMIDE 10 MG/2 ML VIAL IV SCH ×2 (05:19→12:16)
[2021-11-14] MEDS: 0.9 % SODIUM CHLORIDE 10 ML SYRINGE IV SCH (05:19)
[2021-11-14 06:38] LABS: Basophils # (Auto) 0.12 K/mcL (0.00-0.30); Basophils % (Auto) 1.5 % (0.0-2.0); Eosinophils # (Auto) 0.46 K/mcL (0.00-0.70); Eosinophils % (Auto) 5.8 % (0.0-7.0); Hematocrit 33.1 % (34.1-44.9); Hemoglobin 10.3 g/dL (11.2-15.7); Lymphocytes # (Auto) 1.28 K/mcL (1.50-4.80); Lymphocytes % (Auto) 16.2 % (15.5-49.0); Mean Cell Volume 88.5 fL (80.0-100.0); Mean Corpuscular HGB Conc 31.1 g/dL (31.0-36.0); Mean Platelet Volume 10.2 fL (7.4-10.4); Monocytes # (Auto) 0.73 K/mcL (0.10-0.90); Monocytes % (Auto) 9.2 % (1.0-12.0); Neutrophils % (Auto) 67.3 % (38.0-78.0); Platelet Count 342 K/mcL (140-440); RBC 3.74 M/mcL (3.59-5.38); Red Cell Distribution Width 16.2 % (11.5-14.5); WBC 7.9 K/mcL (4.5-11.0)
[2021-11-14] MEDS: PANTOPRAZOLE 40 MG VIAL IV SCH (07:22)
[2021-11-14 08:17] LABS: ALT/SGPT 11 U/L (<40); AST/SGOT 20 U/L (<32); Albumin 3.3 gm/dL (3.2-5.2); Albumin/Globulin Ratio 1.6 (1.0-2.3); Alkaline Phosphatase 70 U/L (39-117); Bilirubin,Direct < 0.2 mg/dL (0-0.3); Bilirubin,Total 0.3 mg/dL (0.1-1.0); Blood Urea Nitrogen 5 mg/dL (8-23); Carbon Dioxide 27 mmol/L (22-30); Chloride 104 mmol/L (96-108); Globulin 2.1 gm/dL (2.2-3.7); Glomerular Filtration Rate 60; Glucose 100 mg/dL (70-105); Lactate Dehydrogenase 227 U/L (135-225); Phosphorous 3.2 mg/dL (2.5-4.5); Triglycerides 115 mg/dL (<150); Uric Acid 3.7 mg/dL (2.5-8.0)
[2021-11-14] MEDS ORDERED: DIATRIZOATE MEGLU/DIATRIZO SOD 120 ML BOTTLE PO ONE (11:19)
--- NOTE | 2021-11-14 11:40 | XRay Report ---
HISTORY: Abdominal pain and vomiting FINDINGS: The airline stewardess film of the abdomen shows normal caliber large and small intestine. The stomach is decompressed. There is an ostomy ring in the left mid abdomen. Patient drank 240 mL of dilute Gastrografin contrast. Serial images were acquired. The contrast passed through the small intestine into the ascending colon at two hours. Fluoroscopy was performed. One minute 24 seconds of fluoroscopy time was used. The stomach has normal distensibility and normal mucosal pattern. The contrast quickly passed through the pylorus into a normal duodenum. On the delayed images a segment of nondistended small bowel is seen above the lesser curvature of the stomach. Comparison was made with the prior CT performed on 11/10/2021 and 11/13/2021. The CT images show this segment of bowel is located posterior to the stomach. This represents an internal hernia. There is no associated inflammation or obstruction. The remainder of the jejunum and ileum are normal. The small intestine does not appear to be significantly distorted by the large right renal cyst. The terminal ileum is partially obscured due to overlying loops of bowel but there is no apparent inflammation at the terminal ileum. IMPRESSION: Internal hernia located posterior to the antrum of the stomach extending upwards into the lesser sac. There is no associated inflammation or obstruction. The exam is otherwise normal. Interpreted and Authenticated by: Jose Lindsay 11/14/21
[2021-11-14] MEDS: DEXTROSE 5%-1/2NS 1,000 ML IV SCH (13:13)
--- NOTE | 2021-11-14 15:54 | Discharge Summary ---
Discharge Provider Provider IMPORTANT FOLLOW-UP INFORMATION FOR PCP: Patient information: Note initiated : 11/14/21 at 3:53 pm Service Date, if different from initiated Date: [] Patient: Joceline Venegas 81 y/o F admitted on 11/12/21 for Vomiting. Chief Complaint: [] Date of admission: 11/12/21 21:15 Discharge date: 11/12/21 Primary care physician: Leonel Jackson MD Admitting clinician: Elli Feldman Attending physician on admission: Elil Feldman Consults: 11/12/21 Consult to Physician [CONS] Stat Comment: Consulting Provider: Elli Feldman Reason For Exam: Physician to Consult Attending physician on discharge: Elli Feldman Discharging clinician: Elli Feldman COURSE Hospital Course Hospital course: 81-year-old female who is status post parastomal hernia repair and a requesting posterior proctopexy about 2-1/2 weeks ago. She was seen in the office on complaining of intermittent episodes of nausea with vomiting. She also had abdominal bloating. At that time she was having multiple movements through her stoma with copious flatus. She also complained of feeling tired with chills. She was afebrile though her white blood count was increased to 15,000. Examination in the office was rather benign. She was treated with oral promethazine and CT of the abdomen and pelvis was done. The CT was nonrevealing except for questionable ileus. Patient states that she continues to have nausea with vomiting though she did not have pain. She was admitted to rule out gastric outlet obstruction due to a large lower pole renal cyst. She was started on Zosyn and CT with contrast was performed. This was normal without any definitive evidence of obstruction. She had increased output through her stoma so a small bowel follow-through was performed earlier today. This is normal and there is no obstructive pattern. She has had multiple bowel move ments and is now asymptomatic. She was given diet and tolerated this well. Her white blood count is decreased to 7900. Patient is clinically stable and will be discharged home on antiemetics, Levaquin and MiraLAX. Discharge diagnosis: Recurrent nausea and vomiting Secondary discharge diagnosis: Leukocytosis of uncertain etiology Right renal cyst Raynaud's syndrome Scleroderma Reason for admission: Nausea vomiting leukocytosis Procedures: None Pertinent studies/significant findings: CT of the abdomen and pelvis with oral contrast Gastrografin small bowel follow-through Complications: None Time Spent with Patient Time attestation: Total time spent providing and/or coordinating discharge services: Time spent: Less than 30 minutes Physical Examination Vital Signs Vital signs: Temp Pulse Resp BP Pulse Ox 98.0 F 65 18 135/78 98 11/14/21 15:44 11/14/21 15:44 11/14/21 15:44 11/14/21 15:44 11/14/21 15:44 Discharge Plan Patient/Caregiver Discharge Instructions Activity: increase activity as tolerated Diet: Regular Diet Prescriptions: New levofloxacin [levofloxacin] 750 MG tablet 750 mg PO DAILY Qty: 7 0RF Continued pilocarpine HCl 5 mg tablet 5 mg PO TID Qty: 90 1RF omeprazole 20 mg capsule,delayed release(DR/EC) 20 mg PO QDAY Qty: 90 3RF hydroxychloroquine 200 mg tablet 200 mg PO BID Qty: 180 3RF lisinopril 40 mg tablet 40 mg PO QDAY 90 Days Qty: 90 3RF promethazine 12.5 mg tablet 12.5 mg PO Q6H PRN (Reason: nausea and vomiting) Qty: 30 1RF prednisone 10 mg tablet 10 mg PO QDAY Qty: 90 0RF amlodipine 10 mg tablet 10 mg PO QDAY Qty: 30 1RF calcium citrate 200 MG tablet 200 mg PO DAILY 0RF omega-3 fatty acids-fish oil 1 EACH capsule 1 each PO DAILY 0RF Label Comments: HOLDING FOR SURGERY multivit with min-folic acid 200 mcg Tablet,Chewable 1 tab PO QDAY 0RF aspirin 81 mg Tablet,Delayed Release (Dr/Ec) 81 mg PO QDAY 0RF Follow Up Plan Follow up with: Leonel Jackson MD [Primary Care Provider] - 11/17/21 11:00 am () Patient Disposition: Home, Self-Care Plan of Treatment: MiraLAX once or twice daily as needed Prognosis: Good Rehab Potential: Good I certify that the patient requires SNF services: No Overall status at discharge: patient is progressing back to baseline Pending Pending Pending: Resuscitation Status Resuscitate (Full Code) Diet Regular Diet Start SunNov 14 1216 Fentanyl (Fentanyl 100 Mcg/2 Ml Vial) 25 mcg IV Q2HP PRN; Protocol PRN Reason: Per Pain Protocol Last Admin: 11/13/21 00:35 Dose: 25 mcg Documented by: MARKO Dextrose/Sodium Chloride (Dextrose 5%-1/2ns Iv Solution) 1,000 mls @ 84 mls/hr IV .[id number] [facility] Last Infusion: 11/14/21 15:07 Dose: 0 mls/hr Documented by: Admin: 11/14/21 13:13 Dose: Not Given Documented by: Admin: 11/13/21 23:04 Dose: 84 mls/hr Documented by: Admin: 11/13/21 13:30 Dose: Not Given Documented by: Infusion: 11/13/21 10:21 Dose: 84 mls/hr Documented by: Admin: 11/12/21 22:26 Dose: 84 mls/hr Documented by: MARKO Piperacillin Sod/Tazobactam (Sod 2.25 gm/ Dextrose) 50 mls @ 100 mls/hr IV Q6H [facility] Last Infusion: 11/14/21 13:14 Dose: 0 mls/hr Documented by: Admin: 11/14/21 12:17 Dose: 100 mls/hr Documented by: Infusion: 11/14/21 05:51 Dose: 0 mls/hr Documented by: Admin: 11/14/21 05:19 Dose: 100 mls/hr Documented by: Infusion: 11/14/21 02:00 Dose: 0 mls/hr Documented by: Admin: 11/14/21 01:22 Dose: 100 mls/hr Documented by: Infusion: 11/13/21 23:30 Dose: 0 mls/hr Documented by: Admin: 11/13/21 20:34 Dose: 100 mls/hr Documented by: Infusion: 11/13/21 15:15 Dose: 0 mls/hr Documented by: Admin: 11/13/21 14:17 Dose: 100 mls/hr Documented by: GARLAND Metoclopramide HCl (Metoclopramide 10 Mg/2 Ml Vial) 10 mg IV Q6 [facility] Last Admin: 11/14/21 12:16 Dose: 10 mg Documented by: Admin: 11/14/21 05:19 Dose: Not Given Documented by: Admin: 11/13/21 23:05 Dose: Not Given Documented by: Admin: 11/13/21 17:48 Dose: 10 mg Documented by: Admin: 11/13/21 14:17 Dose: 10 mg Documented by: Admin: 11/13/21 05:49 Dose: 10 mg Documented by: NEEL Pantoprazole Sodium (Pantoprazole 40 Mg Vial) 40 mg IV BIDAC [facility] Admin: 11/14/21 07:22 Dose: 40 mg Documented by: Admin: 11/13/21 17:48 Dose: 40 mg Documented by: Admin: 11/13/21 08:12 Dose: 40 mg Documented by: Admin: 11/12/21 22:35 Dose: 40 mg Documented by: MARKO Sodium Chloride (0.9 % Sodium Chloride 10 Ml Syringe) 10 ml IV Q8 [facility] Admin: 11/14/21 05:19 Dose: 10 ml Documented by: Admin: 11/13/21 23:05 Dose: Not Given Documented by: Admin: 11/13/21 14:18 Dose: 10 ml Documented by: Admin: 11/13/21 05:49 Dose: Not Given Documented by: Admin: 11/12/21 23:53 Dose: Not Given Documented by: MARKO Shift Summary 11/14/21 14:05 Shift Summary by Liliana Lee Primary Diagnosis: Nausea & Vomiting Registration Status: 11/12 ADMIT @ 2115 - M/S IP Date of Surgery (if applicable): Pertinent Medical Hx/Issue(s): HTN, GERD, PE, DVT, s/p colectomy w/ colostomy d/t bowel prolapse, Hernia repair X3 since, Raynaud's w/ peripheral neuropathy hands, scleroderma, CREST syndrome, TAZLINA - bilat hearing aids. Vital Signs with Trends: VSS on RA PRN MEDS : Fentanyl X1 @ 0035 Lab/Rad (abnormal results): Neuro/Mental Status: A&OX4 Ambulation status : up ad macario in room Diet : Regular Void / BM: AUO per toilet. Colostomy put out 900 loose with theo soft. Lines/Tubes: D5 1/2NS @ 84ml/hr into RAC Recommendations/questions for MD: Expected date of discharge: TBD Discharge Plan (needs, disposition, etc): To return home when medically cleared. pt had a small bowel series done today, has had copius amount of output in her colostomy post procedure. diet has been advanced to regular diet ,pending discharge planning as of yet. Initialized on 11/14/21 14:05 - END OF NOTE
== END 2021-11-14 17:15 | disposition home or self-care (01) | DRG 392 ==
LOC: ED 18:51 → MEDSUR 21:15
PROVIDERS: ADMIT Family Medicine Adult Medicine; ATTEND Family Medicine Adult Medicine

== ENCOUNTER 2023-10-01 18:59 | Inpatient (IN) ==
[2023-10-01] MEDS ORDERED: IOPAMIDOL 100 ML BOTTLE IV ONE (19:00)
[2023-10-01] MEDS: HYDROcodone/APAP (PP) 5/325MG TABLET (#4) PO ONE (21:39)
[2023-10-01 23:10] LABS: Basophils # (Auto) 0.06 K/mcL (0.00-0.30); Basophils % (Auto) 0.5 % (0.0-2.0); Eosinophils % (Auto) 0.8 % (0.0-7.0); Hematocrit 36.9 % (34.1-44.9); Hemoglobin 12.2 g/dL (11.2-15.7); Lymphocytes # (Auto) 0.78 K/mcL (1.50-4.80); Lymphocytes % (Auto) 6.2 % (15.5-49.0); Mean Cell Volume 99.7 fL (80.0-100.0); Mean Corpuscular HGB Conc 33.1 g/dL (31.0-36.0); Mean Platelet Volume 10.7 fL (8.8-12.5); Monocytes # (Auto) 0.98 K/mcL (0.10-0.90); Monocytes % (Auto) 7.8 % (1.0-12.0); Neutrophils % (Auto) 84.5 % (38.0-78.0); Platelet Count 236 K/mcL (140-440); WBC 12.5 K/mcL (4.5-11.0)
[2023-10-01 23:24] LABS: ALT/SGPT 20 U/L (<40); AST/SGOT 33 U/L (<32); Albumin 3.9 gm/dL (3.2-5.2); Albumin/Globulin Ratio 1.6 (1.0-2.3); Alkaline Phosphatase 136 U/L (39-117); Bilirubin,Total 0.4 mg/dL (0.1-1.0); Blood Urea Nitrogen 22 mg/dL (8-23); Calcium 9.9 mg/dL (8.6-10.4); Carbon Dioxide 26 mmol/L (22-30); Chloride 98 mmol/L (96-108); Globulin 2.4 gm/dL (2.2-3.7); Glomerular Filtration Rate 52; Glucose 108 mg/dL (70-105)
[2023-10-02] MEDS: fentaNYL 100 MCG/2 ML VIAL IV ONE (00:30)
[2023-10-02] MEDS: 0.9 % SODIUM CHLORIDE 1,000 ML IV SCH (00:30)
[2023-10-02] MEDS ORDERED: HYDROXYCHLOROQUINE 200 MG TABLET PO ONE (01:11)
[2023-10-02] MEDS: HYDROXYCHLOROQUINE 200 MG TABLET PO ONE (01:44)
[2023-10-02] MEDS: morphine 4 MG/ML VIAL IV ONE (03:30)
[2023-10-02] MEDS: ONDANSETRON 4 MG/2 ML VIAL IV ONE (03:31)
[2023-10-02] MEDS: MELATONIN 3 MG TABLET PO ONE (04:29)
[2023-10-02] MEDS: diphenhydrAMINE 50 MG/ML VIAL IV ONE (05:38)
[2023-10-02] MEDS ORDERED: HYDROcodone/APAP 5/325MG TABLET PO PRN (08:17)
[2023-10-02] MEDS: HYDROcodone/APAP 5/325MG TABLET PO PRN (09:00)
[2023-10-02] MEDS ORDERED: IOPAMIDOL 100 ML BOTTLE IV ONE (10:21)
[2023-10-02] MEDS ORDERED: FLUTICASONE PROPIONATE SPRAY.NAS NAS PRN (10:36)
[2023-10-02] MEDS: KETOROLAC 30 MG/ML VIAL IV PRN (11:23)
[2023-10-02] MEDS: CHLORTHALIDONE 25 MG TABLET PO SCH (11:24)
[2023-10-02] MEDS: OMEPRAZOLE 20 MG CAPSULE PO SCH (11:24)
[2023-10-02] MEDS: DOCUSATE SODIUM 100 MG CAPSULE PO SCH (11:24)
[2023-10-02] MEDS: HEPARIN 5,000 UNIT/ML VIAL SQ SCH (11:28)
[2023-10-02] MEDS: HYDROXYCHLOROQUINE 200 MG TABLET PO SCH (12:02)
[2023-10-02] MEDS: 0.9 % SODIUM CHLORIDE 10 ML SYRINGE IV SCH (12:42)
[2023-10-02] MEDS: Pilocarpine Hcl 5 mg tablet PO SCH (14:01)
[2023-10-02] MEDS: MAGNESIUM HYDROXIDE 30 ML ORAL.SUSP PO PRN (17:15)
[2023-10-02] MEDS: METHOCARBAMOL 500 MG TABLET PO PRN (18:58)
[2023-10-02] MEDS: SENNOSIDES 1 TABLET PO SCH (21:10)
[2023-10-02] MEDS: SERTRALINE 50 MG TABLET PO SCH (21:10)
[2023-10-03 06:30] LABS: Basophils # (Auto) 0.03 K/mcL (0.00-0.30); Basophils % (Auto) 0.4 % (0.0-2.0); Eosinophils # (Auto) 0.21 K/mcL (0.00-0.70); Eosinophils % (Auto) 2.5 % (0.0-7.0); Hematocrit 32.2 % (34.1-44.9); Hemoglobin 10.7 g/dL (11.2-15.7); Lymphocytes # (Auto) 0.39 K/mcL (1.50-4.80); Lymphocytes % (Auto) 4.7 % (15.5-49.0); Mean Cell Volume 99.7 fL (80.0-100.0); Mean Corpuscular HGB Conc 33.2 g/dL (31.0-36.0); Mean Platelet Volume 10.2 fL (8.8-12.5); Monocytes # (Auto) 0.66 K/mcL (0.10-0.90); Monocytes % (Auto) 7.9 % (1.0-12.0); Neutrophils % (Auto) 84.4 % (38.0-78.0); Platelet Count 144 K/mcL (140-440); RBC 3.23 M/mcL (3.59-5.38); Red Cell Distribution Width 13.2 % (11.5-14.5); WBC 8.4 K/mcL (4.5-11.0)
[2023-10-03 07:19] LABS: Blood Urea Nitrogen 20 mg/dL (8-23); Carbon Dioxide 22 mmol/L (22-30); Chloride 103 mmol/L (96-108); Glomerular Filtration Rate 68; Glucose 104 mg/dL (70-105)
[2023-10-03] MEDS: ONDANSETRON 4 MG/2 ML VIAL IV PRN (07:27)
[2023-10-03] MEDS: CALCIUM GLUCONATE 4.65 MEQ in DEXTROSE 5% IN WATER 50 ML IV ONE (08:23)
[2023-10-03] MEDS: LACTATED RINGERS 1,000 ML IV SCH (09:14)
[2023-10-03] MEDS: ASPIRIN 81 MG TAB.CHEW PO SCH (09:15)
[2023-10-03] MEDS: NIFEdipine 30 MG TAB.XL.24H PO SCH (09:16)
[2023-10-03] MEDS: FISH OIL 1,000 MG CAPSULE PO SCH (09:16)
[2023-10-03] MEDS: LISINOPRIL 20 MG TABLET PO SCH (09:16)
[2023-10-03] MEDS: CALCIUM (OYSTER SHELL) 500 MG TABLET PO SCH (09:16)
[2023-10-03] MEDS: MULTIVIT,THER IRON,CA,FA & MIN 1 TABLET PO SCH (09:16)
[2023-10-03] MEDS: PANTOPRAZOLE 40 MG VIAL IV ONE ×2 (11:10→11:18)
[2023-10-03] MEDS: morphine 2 MG/ML VIAL IV PRN (13:33)
[2023-10-03 14:36] LABS: Hematocrit 33.5 % (34.1-44.9); Hemoglobin 10.8 g/dL (11.2-15.7)
[2023-10-03] MEDS: METHOCARBAMOL 1,000 MG/10 ML VIAL IV PRN (15:49)
[2023-10-03] MEDS: PANTOPRAZOLE 40 MG VIAL IV SCH (17:07)
[2023-10-03] MEDS: ACETAMINOPHEN 650 MG/65 ML BAG IV PRN (17:32)
[2023-10-03 18:20] LABS: Hematocrit 33.7 % (34.1-44.9); Hemoglobin 11.1 g/dL (11.2-15.7)
[2023-10-04 01:11] LABS: Hematocrit 30.2 % (34.1-44.9); Hemoglobin 10.1 g/dL (11.2-15.7)
[2023-10-04 06:38] LABS: Basophils # (Auto) 0.04 K/mcL (0.00-0.30); Basophils % (Auto) 0.4 % (0.0-2.0); Eosinophils # (Auto) 0.24 K/mcL (0.00-0.70); Eosinophils % (Auto) 2.6 % (0.0-7.0); Hematocrit 30.5 % (34.1-44.9); Hemoglobin 10.1 g/dL (11.2-15.7); Lymphocytes # (Auto) 0.59 K/mcL (1.50-4.80); Lymphocytes % (Auto) 6.4 % (15.5-49.0); Mean Corpuscular HGB Conc 33.1 g/dL (31.0-36.0); Mean Platelet Volume 10.3 fL (8.8-12.5); Monocytes # (Auto) 0.66 K/mcL (0.10-0.90); Monocytes % (Auto) 7.2 % (1.0-12.0); Neutrophils % (Auto) 83.3 % (38.0-78.0); Platelet Count 154 K/mcL (140-440); RBC 3.05 M/mcL (3.59-5.38); WBC 9.2 K/mcL (4.5-11.0)
[2023-10-04 07:54] LABS: Blood Urea Nitrogen 17 mg/dL (8-23); Carbon Dioxide 22 mmol/L (22-30); Chloride 101 mmol/L (96-108); Glomerular Filtration Rate 80; Glucose 63 mg/dL (70-105)
[2023-10-04 12:26] LABS: Hematocrit 33.7 % (34.1-44.9)
[2023-10-04] MEDS: PROCHLORPERAZINE 10 MG/2 ML VIAL IV PRN (20:42)
[2023-10-04] MEDS ORDERED: HYDROXYCHLOROQUINE 200 MG TABLET PO SCH (21:00)
[2023-10-05 12:37] LABS: Hemoglobin 11.1 g/dL (11.2-15.7)
[2023-10-05 12:57] LABS: ALT/SGPT 17 U/L (<40); AST/SGOT 29 U/L (<32); Albumin 3.3 gm/dL (3.2-5.2); Albumin/Globulin Ratio 1.4 (1.0-2.3); Alkaline Phosphatase 105 U/L (39-117); Bilirubin,Direct 0.2 mg/dL (<0.3); Bilirubin,Total 0.6 mg/dL (0.1-1.0); Blood Urea Nitrogen 22 mg/dL (8-23); Calcium 8.7 mg/dL (8.6-10.4); Carbon Dioxide 23 mmol/L (22-30); Chloride 100 mmol/L (96-108); Globulin 2.3 gm/dL (2.2-3.7); Glomerular Filtration Rate 68; Glucose 97 mg/dL (70-105); Lactate Dehydrogenase 193 U/L (135-225); Phosphorous 3.6 mg/dL (2.5-4.5); Triglycerides 91 mg/dL (<150); Uric Acid 7.5 mg/dL (2.5-8.0)
[2023-10-05] MEDS: SCOPOLAMINE 1 PATCH PATCH TOPICAL SCH (16:02)
[2023-10-05] MEDS: ONDANSETRON 4 MG/2 ML VIAL IV PRN (16:50)
[2023-10-06 06:38] LABS: ALT/SGPT 15 U/L (<40); AST/SGOT 28 U/L (<32); Albumin 3.2 gm/dL (3.2-5.2); Albumin/Globulin Ratio 1.5 (1.0-2.3); Alkaline Phosphatase 98 U/L (39-117); Bilirubin,Direct 0.3 mg/dL (<0.3); Bilirubin,Total 0.6 mg/dL (0.1-1.0); Blood Urea Nitrogen 16 mg/dL (8-23); Calcium 8.7 mg/dL (8.6-10.4); Carbon Dioxide 25 mmol/L (22-30); Chloride 97 mmol/L (96-108); Globulin 2.1 gm/dL (2.2-3.7); Glomerular Filtration Rate 85; Glucose 83 mg/dL (70-105); Lactate Dehydrogenase 195 U/L (135-225); Phosphorous 2.7 mg/dL (2.5-4.5); Triglycerides 97 mg/dL (<150); Uric Acid 7.4 mg/dL (2.5-8.0)
[2023-10-06] MEDS: CARBOXYMETHYLCELLULOSE SODIUM 1 EACH DROPER.GEL OU PRN (07:12)
[2023-10-06] MEDS: morphine 2 MG/ML VIAL IV PRN (07:13)
[2023-10-06] MEDS: POTASSIUM CHLORIDE 40 MEQ in DEXTROSE 5% IN WATER 500 ML IV SCH (12:30)
[2023-10-07] MEDS: diphenhydrAMINE 50 MG/ML VIAL IV ONE (02:26)
[2023-10-07] MEDS: LORazepam 2 MG/ML VIAL ONE (02:26)
[2023-10-07] MEDS: LORazepam 2 MG/ML VIAL IV ONE (02:26)
[2023-10-07] MEDS: diphenhydrAMINE 50 MG/ML VIAL ONE (02:26)
[2023-10-07 07:10] LABS: Blood Urea Nitrogen 19 mg/dL (8-23); Calcium 9.4 mg/dL (8.6-10.4); Carbon Dioxide 24 mmol/L (22-30); Chloride 93 mmol/L (96-108); Glomerular Filtration Rate 80; Glucose 149 mg/dL (70-105)
[2023-10-07] MEDS ORDERED: diphenhydrAMINE 25 MG CAPSULE PO PRN (08:05)
[2023-10-07] MEDS: 0.9 % SODIUM CHLORIDE 500 ML IV ONE (09:32)
[2023-10-07] MEDS: KETOROLAC 30 MG/ML VIAL IV PRN (09:33)
[2023-10-07] MEDS: LABETALOL HCL 20 MG/4 ML VIAL IV PRN (09:33)
[2023-10-07] MEDS: DEXTROSE 5%-1/2NS W/10MEQ KCL 1,000 ML IV SCH (19:31)
[2023-10-07] MEDS: LORazepam 2 MG/ML VIAL IV PRN (20:50)
[2023-10-08 06:37] LABS: Blood Urea Nitrogen 24 mg/dL (8-23); Calcium 8.5 mg/dL (8.6-10.4); Carbon Dioxide 24 mmol/L (22-30); Chloride 99 mmol/L (96-108); Glomerular Filtration Rate 68; Glucose 98 mg/dL (70-105)
[2023-10-08] MEDS: HEPARIN 5,000 UNIT/ML VIAL SQ SCH (08:19)
[2023-10-08] MEDS: 0.9 % SODIUM CHLORIDE 1,000 ML IV SCH (08:21)
[2023-10-08] MEDS: METOCLOPRAMIDE 10 MG/2 ML VIAL IV SCH (12:09)
[2023-10-09 06:30] LABS: Basophils # (Auto) 0.05 K/mcL (0.00-0.30); Basophils % (Auto) 0.7 % (0.0-2.0); Eosinophils # (Auto) 0.25 K/mcL (0.00-0.70); Eosinophils % (Auto) 3.3 % (0.0-7.0); Hemoglobin 10.2 g/dL (11.2-15.7); Lymphocytes # (Auto) 0.62 K/mcL (1.50-4.80); Lymphocytes % (Auto) 8.1 % (15.5-49.0); Mean Corpuscular HGB Conc 32.9 g/dL (31.0-36.0); Mean Platelet Volume 9.7 fL (8.8-12.5); Monocytes # (Auto) 0.77 K/mcL (0.10-0.90); Monocytes % (Auto) 10.1 % (1.0-12.0); Neutrophils % (Auto) 77.7 % (38.0-78.0); Platelet Count 257 K/mcL (140-440); RBC 3.07 M/mcL (3.59-5.38); WBC 7.6 K/mcL (4.5-11.0)
[2023-10-09 06:45] LABS: ALT/SGPT 10 U/L (<40); AST/SGOT 28 U/L (<32); Albumin 2.9 gm/dL (3.2-5.2); Albumin/Globulin Ratio 1.3 (1.0-2.3); Alkaline Phosphatase 93 U/L (39-117); Bilirubin,Direct 0.2 mg/dL (<0.3); Bilirubin,Total 0.6 mg/dL (0.1-1.0); Blood Urea Nitrogen 16 mg/dL (8-23); Calcium 8.6 mg/dL (8.6-10.4); Carbon Dioxide 23 mmol/L (22-30); Chloride 101 mmol/L (96-108); Globulin 2.3 gm/dL (2.2-3.7); Glomerular Filtration Rate 90; Glucose 85 mg/dL (70-105); Lactate Dehydrogenase 197 U/L (135-225); Phosphorous 2.3 mg/dL (2.5-4.5); Triglycerides 118 mg/dL (<150); Uric Acid 5.1 mg/dL (2.5-8.0)
[2023-10-09] MEDS: POTASSIUM CHLORIDE 40 MEQ in DEXTROSE 5% IN WATER 500 ML IV ONE (09:24)
[2023-10-10 06:29] LABS: Hematocrit 36.4 % (34.1-44.9)
[2023-10-10 06:52] LABS: Blood Urea Nitrogen 13 mg/dL (8-23); Calcium 9.3 mg/dL (8.6-10.4); Carbon Dioxide 22 mmol/L (22-30); Chloride 99 mmol/L (96-108); Glomerular Filtration Rate 85; Glucose 107 mg/dL (70-105)
[2023-10-10] MEDS: METOCLOPRAMIDE 10 MG/2 ML VIAL IV SCH (17:49)
[2023-10-10] MEDS: 0.9 % SODIUM CHLORIDE 1,000 ML IV SCH (17:49)
[2023-10-10] MEDS: guaiFENesin 600 MG TAB.SR.12H PO SCH (20:58)
[2023-10-10] MEDS: ACETAMINOPHEN 325 MG TABLET PO PRN (21:01)
[2023-10-11 06:46] LABS: Basophils # (Auto) 0.05 K/mcL (0.00-0.30); Basophils % (Auto) 0.4 % (0.0-2.0); Eosinophils # (Auto) 0.16 K/mcL (0.00-0.70); Eosinophils % (Auto) 1.3 % (0.0-7.0); Hematocrit 30.5 % (34.1-44.9); Lymphocytes # (Auto) 0.91 K/mcL (1.50-4.80); Lymphocytes % (Auto) 7.2 % (15.5-49.0); Mean Cell Volume 100.3 fL (80.0-100.0); Mean Corpuscular HGB Conc 32.8 g/dL (31.0-36.0); Mean Platelet Volume 9.8 fL (8.8-12.5); Monocytes # (Auto) 1.32 K/mcL (0.10-0.90); Monocytes % (Auto) 10.5 % (1.0-12.0); Neutrophils % (Auto) 80.3 % (38.0-78.0); Platelet Count 322 K/mcL (140-440); RBC 3.04 M/mcL (3.59-5.38); WBC 12.6 K/mcL (4.5-11.0)
[2023-10-11 07:45] LABS: ALT/SGPT 11 U/L (<40); AST/SGOT 24 U/L (<32); Albumin 2.8 gm/dL (3.2-5.2); Albumin/Globulin Ratio 1.4 (1.0-2.3); Alkaline Phosphatase 97 U/L (39-117); Bilirubin,Total 0.4 mg/dL (0.1-1.0); Blood Urea Nitrogen 37 mg/dL (8-23); Calcium 8.4 mg/dL (8.6-10.4); Carbon Dioxide 20 mmol/L (22-30); Chloride 104 mmol/L (96-108); Glomerular Filtration Rate 68; Glucose 111 mg/dL (70-105)
[2023-10-11] MEDS: POTASSIUM CHLORIDE 20 MEQ TABLET PO SCH (07:51)
== END 2023-10-11 11:44 | DRG 565 ==
LOC: MEDSUR 18:59 → ED 18:59 → MEDSUR 10-02 10:25
PROVIDERS: ADMIT Student in an Organized Health Care Education/Training Program; ATTEND Internal Medicine